=== PATIENT | male | born 1955 | race Two or more races ===

== ENCOUNTER 2017-01-04 16:37 | Inpatient (IN) | payer MEDICAID ==
[~2017-01-04] VITALS: Ht 167.6 cm; Wt 75.3 kg
[~2017-01-04 16:37] MED LIST: CARB200T PO; ESOM40CA39 PO; LORA-622 PO; METO25TA62 PO; NAPR-223 PO; OMEP20CA5
[2017-01-04 18:03] LABS: Albumin 3.2 g/dL (3.4-5.0); Anion Gap 8 (5-15); Aspartate Aminotransferase 13 U/L (15-37); BUN/Creatinine Ratio 20.8; Blood Urea Nitrogen 21 mg/dL (7-18); Calcium 8.2 mg/dL (8.5-10.1); Carbon Dioxide 26 mmol/L (21-32); Chloride 109 mmol/L (98-107); GFR African American 97 mL/min; GFR Non-African American 80 mL/min; Glucose 122 mg/dL (74-106); Potassium 4.5 mmol/L (3.5-5.1); Sodium 143 mmol/L (136-145)
[2017-01-04 18:04] LABS: Basophils # (auto) 0 uL; Basophils % (auto) 0.3 % (0.0-2.0); Eosinophils # (auto) 0.1 uL; Eosinophils % (auto) 1.4 % (0.0-7.0); Hemoglobin 14.1 g/dL (13.5-17.5); Lymphocytes # (auto) 1.2 uL; Mean Corpuscular Hemoglobin 30.3 pg (28.0-32.0); Mean Corpuscular Hgb Conc. 33.7 g/dL (32.0-36.0); Mean Corpuscular Volume 90.1 fL (80.0-100.0); Mean Platelet Volume 8.3 fL (7.4-10.4); Monocytes # (auto) 0.6 uL; Monocytes % (auto) 6.2 % (0.0-12.0); Neutrophils # (auto) 7.2 uL; Neutrophils % (auto) 79.1 % (37.0-80.0); Platelet Count (auto) 217 10^3/uL (140-450); Red Cell Distribution Width 13.2 % (11.6-16.0); SUSPECT VIEW TRANSMISSION; White Blood Cell 9.1 10^3/uL (4.4-10.8)
[2017-01-04 18:07] LABS: Alkaline Phosphatase 161 U/L (45-117); Bilirubin, Total 0.2 mg/dL (0.2-1.0)
[2017-01-04 18:23] LABS: B-Type Natriuretic Peptide 27.49 pg/mL (0-100)
[2017-01-04] MEDS ORDERED: MORPHINE SULF INJ 2 MG/ML SYRINGE 1ML IV ONE ×2 (18:30→21:00)
[2017-01-04] MEDS ORDERED: ONDANSETRON HCL 4 MG/2 ML VIAL IV ONE ×2 (18:30→21:00)
[2017-01-04 18:44] LABS: Temperature: 23.4 C (20.0-25.0)
[2017-01-04 18:48] LABS: INR 0.93 (0.9-1.15); Partial Thromboplastin Time 26.3 sec (22.64-33.71)
[2017-01-05] VITALS (7 sets, daily range): BP systolic 87–137; BP diastolic 51–87
[2017-01-05] MEDS ORDERED: ONDANSETRON HCL 4 MG/2 ML VIAL IV PRN (01:30)
[2017-01-05] MEDS ORDERED: SODIUM CHLORIDE 0.9% 500 ML IV ONE (01:30)
[2017-01-05] MEDS ORDERED: NITROGLYCERIN 0.4 MG SL TAB SL PRN (01:30)
[2017-01-05] MEDS ORDERED: MORPHINE SULF INJ 2 MG/ML SYRINGE 1ML IV PRN (01:30)
[2017-01-05] MEDS ORDERED: ACETAMINOPHEN 325 MG TAB PO PRN (01:30)
[2017-01-05] MEDS ORDERED: TEMAZEPAM 15 MG CAP PO PRN (01:30)
[2017-01-05] MEDS ORDERED: DEXTROSE (50%) 50ML SYRG IV PRN (01:30)
[2017-01-05] MEDS: HYDROcodone-ACET 5/325MG TAB PO PRN ×2 (04:28→20:54)
[2017-01-05] MEDS: InsuLIN REG 1unit/0.01ml Soln (100units/ml) SC SCH ×3 (06:00→18:00)
[2017-01-05] MEDS: ACCU-CHEK COMFORT CURVE STRIP VI SCH ×3 (06:00→18:00)
[2017-01-05] MEDS: METOPROLOL TARTRATE 25 MG TAB PO SCH ×2 (09:04→22:53)
[2017-01-05] MEDS: FAMOTIDINE 20 MG TAB PO SCH ×2 (09:04→22:52)
[2017-01-05] MEDS: carBAMazepine 200 MG TAB PO SCH ×2 (09:05→22:52)
[2017-01-05] MEDS: ENOXAPARIN SOD 40 MG/0.4 ML SYRINGE SC SCH (09:05)
[2017-01-05] MEDS: CLOPIDOGREL BISULFATE 75 MG TAB PO SCH (09:05)
[2017-01-05] MEDS ORDERED: ATORVASTATIN 20 MG TAB PO SCH (22:00)
[2017-01-06 05:00] VITALS: BP 118/75
[2017-01-06] MEDS: InsuLIN REG 1unit/0.01ml Soln (100units/ml) SC SCH ×3 (05:36→12:00)
[2017-01-06] MEDS: ACCU-CHEK COMFORT CURVE STRIP VI SCH ×3 (05:36→12:00)
[2017-01-06 06:36] LABS: Basophils # (auto) 0 uL; Basophils % (auto) 0.7 % (0.0-2.0); Eosinophils # (auto) 0.2 uL; Eosinophils % (auto) 3.2 % (0.0-7.0); Hematocrit 40.7 % (41.0-53.0); Hemoglobin 13.5 g/dL (13.5-17.5); Lymphocytes # (auto) 1.1 uL; Lymphocytes % (auto) 19.4 % (10.0-50.0); Mean Corpuscular Hemoglobin 30.4 pg (28.0-32.0); Mean Corpuscular Hgb Conc. 33.2 g/dL (32.0-36.0); Mean Corpuscular Volume 91.7 fL (80.0-100.0); Mean Platelet Volume 8.2 fL (7.4-10.4); Monocytes # (auto) 0.4 uL; Monocytes % (auto) 7.2 % (0.0-12.0); Neutrophils # (auto) 4.1 uL; Neutrophils % (auto) 69.5 % (37.0-80.0); Platelet Count (auto) 202 10^3/uL (140-450); Red Cell Distribution Width 13.9 % (11.6-16.0); White Blood Cell 5.9 10^3/uL (4.4-10.8)
[2017-01-06 07:24] LABS: BUN/Creatinine Ratio 21.7; Bilirubin, Total 0.3 mg/dL (0.2-1.0); Calcium 8.6 mg/dL (8.5-10.1); Potassium 4.2 mmol/L (3.5-5.1); Total Protein 6.8 g/dL (6.4-8.2)
[2017-01-06 08:38] VITALS: BP 126/74
[2017-01-06] MEDS: CLOPIDOGREL BISULFATE 75 MG TAB PO SCH (09:40)
[2017-01-06] MEDS: ENOXAPARIN SOD 40 MG/0.4 ML SYRINGE SC SCH (09:40)
[2017-01-06] MEDS: carBAMazepine 200 MG TAB PO SCH (09:40)
[2017-01-06] MEDS: FAMOTIDINE 20 MG TAB PO SCH (09:40)
[2017-01-06] MEDS: METOPROLOL TARTRATE 25 MG TAB PO SCH (09:41)
[2017-01-06 11:38] VITALS: BP 124/62
[2017-01-06 13:08] VITALS: BP 167/90
== END 2017-01-06 14:00 | disposition home or self-care (01) | DRG 243 ==
LOC: EDBD 16:37 → ER 16:43 → TELE 16:44 → TELE-WESTW 01-05 02:02
PROVIDERS: ADMIT Nurse Practitioner; ATTEND Family Medicine
DX: K21.9 Gastro-esophageal reflux disease without esophagitis (principal); I25.110 Atherosclerotic heart disease of native coronary artery with unstable angina pectoris; E11.65 Type 2 diabetes mellitus with hyperglycemia; E44.1 Mild protein-calorie malnutrition; J44.9 Chronic obstructive pulmonary disease, unspecified; I10 Essential (primary) hypertension; M94.0 Chondrocostal junction syndrome [Tietze]; F17.210 Nicotine dependence, cigarettes, uncomplicated; E78.5 Hyperlipidemia, unspecified; E86.0 Dehydration; Z86.73 Personal history of transient ischemic attack (TIA), and cerebral infarction without residual deficits; I25.2 Old myocardial infarction; Z95.5 Presence of coronary angioplasty implant and graft; Z88.6 Allergy status to analgesic agent; Z91.11 Patient's noncompliance with dietary regimen; Z68.26 Body mass index [BMI] 26.0-26.9, adult
CPT/HCPCS: 36415; 71010; 80053; 82962; 83880; 84443; 84484; 85025; 85379; 85610; 85730; 93005; 94761; 96374; 96375; 96376; J2405

== ENCOUNTER 2017-02-28 15:06 | Emergency (ER) | payer MEDICAID ==
[~2017-02-28] VITALS: Ht 167.6 cm; Wt 70.8 kg
[2017-02-28] MEDS ORDERED: SODIUM CHLORIDE 0.9% 1,000 ML IV ONE (15:50)
[2017-02-28] MEDS ORDERED: MORPHINE SULFATE 4 MG/ML SYRG IV ONE (16:00)
[2017-02-28] MEDS ORDERED: ONDANSETRON HCL 4 MG/2 ML VIAL IV ONE (16:00)
[2017-02-28 16:51] LABS: Basophils # (auto) 0 uL; Basophils % (auto) 0.6 % (0.0-2.0); Eosinophils # (auto) 0.2 uL; Eosinophils % (auto) 3.1 % (0.0-7.0); Hemoglobin 13.2 g/dL (13.5-17.5); Lymphocytes # (auto) 1.2 uL; Mean Corpuscular Hemoglobin 30.5 pg (28.0-32.0); Mean Corpuscular Volume 92.6 fL (80.0-100.0); Mean Platelet Volume 8.2 fL (7.4-10.4); Monocytes # (auto) 0.4 uL; Monocytes % (auto) 6.5 % (0.0-12.0); Neutrophils % (auto) 69.8 % (37.0-80.0); Platelet Count (auto) 203 10^3/uL (140-450); Red Cell Distribution Width 14.8 % (11.6-16.0); White Blood Cell 5.8 10^3/uL (4.4-10.8)
[2017-02-28 17:04] LABS: INR 0.96 (0.9-1.15); Partial Thromboplastin Time 25.8 sec (22.64-33.71); Prothrombin Time 10.5 sec (9.37-12.3)
[2017-02-28 17:26] LABS: Albumin 2.9 g/dL (3.4-5.0); Alkaline Phosphatase 134 U/L (45-117); Anion Gap 6 (5-15); Aspartate Aminotransferase 11 U/L (15-37); BUN/Creatinine Ratio 18.6; Bilirubin, Total 0.2 mg/dL (0.2-1.0); Blood Urea Nitrogen 16 mg/dL (7-18); Carbon Dioxide 28 mmol/L (21-32); Chloride 106 mmol/L (98-107); GFR African American 116 mL/min; GFR Non-African American 96 mL/min; Glucose 112 mg/dL (74-106); Magnesium 2.1 mg/dL (1.6-2.6); Sodium 140 mmol/L (136-145); Total Protein 6.6 g/dL (6.4-8.2)
[2017-02-28 17:29] LABS: B-Type Natriuretic Peptide 80.44 pg/mL (0-100)
[2017-02-28 17:31] LABS: Temperature: 24.1 C (20.0-25.0)
[2017-02-28 18:25] VITALS: BP 127/67
== END 2017-02-28 18:59 | disposition home or self-care (01) ==
LOC: EDBD 15:06 → ER 15:15
DX: R07.89 Other chest pain (principal); R51 Headache; R42 Dizziness and giddiness; I10 Essential (primary) hypertension; I25.10 Atherosclerotic heart disease of native coronary artery without angina pectoris; F17.210 Nicotine dependence, cigarettes, uncomplicated; J44.9 Chronic obstructive pulmonary disease, unspecified; E11.9 Type 2 diabetes mellitus without complications; K21.9 Gastro-esophageal reflux disease without esophagitis; E78.5 Hyperlipidemia, unspecified; I25.2 Old myocardial infarction; Z98.61 Coronary angioplasty status; Z88.8 Allergy status to other drugs, medicaments and biological substances; Z79.899 Other long term (current) drug therapy; Z86.73 Personal history of transient ischemic attack (TIA), and cerebral infarction without residual deficits; Z95.5 Presence of coronary angioplasty implant and graft
CPT/HCPCS: 36415; 70450; 71010; 80053; 80156; 83735; 83880; 84484; 85025; 85610; 85730; 93005; 94761; 96374; 96375; 99285; J2270; J2405; J7030; 96361

== ENCOUNTER 2017-10-02 10:10 | Observation (INO) | payer MEDICAID ==
[~2017-10-02] VITALS: Ht 167.6 cm; Wt 81.6 kg
[~2017-10-02 10:10] MED LIST changes: -OMEP20CA5; +OMEP20CA74
[2017-10-02] MEDS ORDERED: IPRATROPIUM BROM 0.5 MG/2.5ML INH SOL NEB ONE (16:30)
[2017-10-02] MEDS ORDERED: ALBUTEROL SULF 2.5 MG/0.5ML(0.5%) NEB SOLN NEB ONE (16:30)
[2017-10-02 17:11] VITALS: BP 138/99
[2017-10-02] MEDS ORDERED: methylPREDNISolone SOD SUCC 125 MG/2 ML VL IV ONE (17:15)
[2017-10-02 18:06] LABS: Basophils # (auto) 0 uL; Basophils % (auto) 0.5 % (0.0-2.0); Eosinophils # (auto) 0.1 uL; Hematocrit 44.1 % (41.0-53.0); Hemoglobin 15.2 g/dL (13.5-17.5); Lymphocytes # (auto) 1.1 uL; Lymphocytes % (auto) 19.6 % (10.0-50.0); Mean Corpuscular Hemoglobin 31.8 pg (28.0-32.0); Mean Corpuscular Hgb Conc. 34.5 g/dL (32.0-36.0); Mean Corpuscular Volume 92.3 fL (80.0-100.0); Monocytes # (auto) 0.6 uL; Neutrophils # (auto) 3.6 uL; Neutrophils % (auto) 66.9 % (37.0-80.0); Nucleated Red Blood Cells % 0.1 %; Platelet Count (auto) 182 10^3/uL (140-450); Red Blood Cells 4.78 10^6/uL (4.5-5.90); Red Cell Distribution Width 13.5 % (11.8-14.3); White Blood Cell 5.4 10^3/uL (4.4-10.8)
[2017-10-02 18:26] LABS: Albumin 3.3 g/dL (3.4-5.0); BUN/Creatinine Ratio 13.5; Bilirubin, Total 0.3 mg/dL (0.2-1.0); Calcium 8.4 mg/dL (8.5-10.1); Potassium 3.9 mmol/L (3.5-5.1)
== END 2017-10-02 18:56 | disposition home or self-care (01) | DRG 140 ==
LOC: EDBD 10:10 → ER 10:12 → OVERFLOW 17:08 → ER 18:56
PROVIDERS: ADMIT Family Medicine; ATTEND Family Medicine
DX: J44.9 Chronic obstructive pulmonary disease, unspecified (principal); I10 Essential (primary) hypertension; I25.10 Atherosclerotic heart disease of native coronary artery without angina pectoris; K21.9 Gastro-esophageal reflux disease without esophagitis; E78.5 Hyperlipidemia, unspecified; I25.2 Old myocardial infarction; F17.210 Nicotine dependence, cigarettes, uncomplicated; Z95.5 Presence of coronary angioplasty implant and graft
CPT/HCPCS: 36415; 80053; 85025; 93005; 94640; 96374; 99285; G0378; J2930

== ENCOUNTER 2017-10-14 17:00 | Inpatient (IN) | payer MEDICAID ==
[~2017-10-14] VITALS: Ht 167.6 cm; Wt 76.0 kg
[2017-10-14] MEDS ORDERED: methylPREDNISolone SOD SUCC 125 MG/2 ML VL IV ONE (17:30)
[2017-10-14 18:05] LABS: Basophils # (auto) 0 uL; Basophils % (auto) 0.2 % (0.0-2.0); Eosinophils # (auto) 0 uL; Hematocrit 44.5 % (41.0-53.0); Hemoglobin 15.1 g/dL (13.5-17.5); Lymphocytes % (auto) 12.7 % (10.0-50.0); Mean Corpuscular Hemoglobin 31.7 pg (28.0-32.0); Mean Corpuscular Volume 93.2 fL (80.0-100.0); Monocytes # (auto) 0.2 uL; Monocytes % (auto) 2.1 % (0.0-12.0); Neutrophils # (auto) 6.8 uL; Platelet Count (auto) 286 10^3/uL (140-450); Red Blood Cells 4.77 10^6/uL (4.5-5.90); Red Cell Distribution Width 14.1 % (11.8-14.3)
[2017-10-14] MEDS ORDERED: ALBUTEROL SULF 2.5 MG/0.5ML(0.5%) NEB SOLN HHN ONE (18:15)
[2017-10-14] MEDS ORDERED: IPRATROPIUM BROM 0.5 MG/2.5ML INH SOL HHN ONE (18:15)
[2017-10-14 18:24] LABS: Anion Gap 9 (5-15); Blood Urea Nitrogen 38 mg/dL (7-18); Calcium 8.2 mg/dL (8.5-10.1); Carbon Dioxide 23 mmol/L (21-32); Chloride 106 mmol/L (98-107); Glucose 153 mg/dL (74-106); Sodium 138 mmol/L (136-145)
[2017-10-14 18:26] LABS: Aspartate Aminotransferase 24 U/L (15-37); BUN/Creatinine Ratio 26.8; GFR African American 65 mL/min; GFR Non-African American 54 mL/min
[2017-10-14 18:30] LABS: INR 1.03 (0.9-1.15); Partial Thromboplastin Time 25.8 sec (22.64-33.71); Prothrombin Time 11.2 sec (9.37-12.3)
[2017-10-14 18:34] LABS: Alanine Aminotransferase 35 U/L (16-61); Alkaline Phosphatase 155 U/L (45-117); Bilirubin, Total 0.3 mg/dL (0.2-1.0)
[2017-10-14] MEDS ORDERED: cefTRIAXone 1GM/10ml IVPUSH 10 ML IV ONE (21:30)
[2017-10-14] MEDS ORDERED: ONDANSETRON HCL 4 MG/2 ML VIAL IV PRN (22:45)
[2017-10-14] MEDS ORDERED: ACETAMINOPHEN 500 MG TAB PO PRN (22:45)
[2017-10-14] MEDS: DOXYCYCLINE HYC 100MG/250ML 250 ML IV SCH (22:52)
[2017-10-15] VITALS (8 sets, daily range): BP systolic 97–152; BP diastolic 67–96
[2017-10-15] MEDS: ALBUTEROL SULF 2.5 MG/0.5ML(0.5%) NEB SOLN NEB SCH ×5 (00:44→19:49)
[2017-10-15] MEDS: IPRATROPIUM BROM 0.5 MG/2.5ML INH SOL NEB SCH ×5 (00:44→19:49)
[2017-10-15 05:25] LABS: Basophils # (auto) 0 uL; Basophils % (auto) 0.1 % (0.0-2.0); Eosinophils # (auto) 0 uL; Hematocrit 42.5 % (41.0-53.0); Hemoglobin 14.4 g/dL (13.5-17.5); Lymphocytes # (auto) 1.6 uL; Mean Corpuscular Hemoglobin 31.2 pg (28.0-32.0); Mean Corpuscular Hgb Conc. 33.8 g/dL (32.0-36.0); Mean Corpuscular Volume 92.2 fL (80.0-100.0); Monocytes # (auto) 0.6 uL; Monocytes % (auto) 5.2 % (0.0-12.0); Neutrophils # (auto) 9.8 uL; Neutrophils % (auto) 81.7 % (37.0-80.0); Nucleated Red Blood Cells % 0.1 %; Platelet Count (auto) 252 10^3/uL (140-450); Red Blood Cells 4.61 10^6/uL (4.5-5.90); Red Cell Distribution Width 13.8 % (11.8-14.3)
[2017-10-15] MEDS: SODIUM CHLORIDE 0.9% 1,000 ML IV SCH ×2 (05:32→15:27)
[2017-10-15] MEDS: methylPREDNISolone SOD SUCC 40 MG/ML VL IV SCH ×3 (05:33→22:10)
[2017-10-15 05:47] LABS: Calcium 8.3 mg/dL (8.5-10.1); Potassium 4.3 mmol/L (3.5-5.1)
[2017-10-15] MEDS: HYDROcodone-ACET 5/325MG TAB PO PRN ×3 (08:50→22:11)
[2017-10-15] MEDS ORDERED: FUROSEMIDE 40 MG TAB PO SCH (10:00)
[2017-10-15] MEDS: ENALAPRIL MALEATE 10 MG TAB PO SCH (10:04)
[2017-10-15] MEDS: DOXYCYCLINE HYC 100MG/250ML 250 ML IV SCH ×2 (10:05→22:21)
[2017-10-15] MEDS: CARVEDILOL 12.5 MG TAB PO SCH ×2 (10:05→22:11)
[2017-10-15] MEDS: PENICILLIN V POTASSIUM 250 MG TAB PO SCH (22:11)
[2017-10-15] MEDS ORDERED: carBAMazepine 200 MG TAB PO ONE (22:30)
[2017-10-16] MEDS: SODIUM CHLORIDE 0.9% 1,000 ML IV SCH ×2 (03:10→15:57)
[2017-10-16] MEDS: methylPREDNISolone SOD SUCC 40 MG/ML VL IV SCH (05:51)
[2017-10-16] MEDS: PENICILLIN V POTASSIUM 250 MG TAB PO SCH ×2 (05:52→15:56)
[2017-10-16 05:55] VITALS: BP 91/57
[2017-10-16] MEDS: IPRATROPIUM BROM 0.5 MG/2.5ML INH SOL NEB SCH ×4 (06:00→19:27)
[2017-10-16] MEDS: ALBUTEROL SULF 2.5 MG/0.5ML(0.5%) NEB SOLN NEB SCH ×4 (06:00→19:27)
[2017-10-16 08:00] VITALS: BP 131/90
[2017-10-16 09:00] VITALS: BP 131/90
[2017-10-16] MEDS: PANTOPRAZOLE 40 MG TAB PO SCH (11:34)
[2017-10-16] MEDS: HYDROcodone-ACET 5/325MG TAB PO PRN ×3 (11:34→21:35)
[2017-10-16] MEDS: ENALAPRIL MALEATE 10 MG TAB PO SCH (11:35)
[2017-10-16] MEDS: carBAMazepine 200 MG TAB PO SCH ×2 (11:35→21:35)
[2017-10-16] MEDS: CARVEDILOL 12.5 MG TAB PO SCH ×2 (11:36→21:35)
[2017-10-16] MEDS: DOXYCYCLINE HYC 100MG/250ML 250 ML IV SCH (11:36)
[2017-10-16 13:00] VITALS: BP 117/68
[2017-10-16 22:00] VITALS: BP 116/66
[2017-10-17 05:00] VITALS: BP 94/50
[2017-10-17] MEDS: SODIUM CHLORIDE 0.9% 1,000 ML IV SCH (05:49)
[2017-10-17] MEDS: IPRATROPIUM BROM 0.5 MG/2.5ML INH SOL NEB SCH ×2 (06:00→12:13)
[2017-10-17] MEDS: ALBUTEROL SULF 2.5 MG/0.5ML(0.5%) NEB SOLN NEB SCH ×2 (06:00→12:13)
[2017-10-17 09:00] VITALS: BP 146/89
[2017-10-17 09:48] LABS: Basophils # (auto) 0.1 uL; Basophils % (auto) 0.6 % (0.0-2.0); Eosinophils # (auto) 0.1 uL; Hematocrit 44.9 % (41.0-53.0); Lymphocytes # (auto) 2.6 uL; Lymphocytes % (auto) 29.1 % (10.0-50.0); Mean Corpuscular Hemoglobin 31.2 pg (28.0-32.0); Mean Corpuscular Hgb Conc. 33.3 g/dL (32.0-36.0); Mean Corpuscular Volume 93.6 fL (80.0-100.0); Monocytes # (auto) 0.7 uL; Neutrophils # (auto) 5.4 uL; Neutrophils % (auto) 61.3 % (37.0-80.0); Nucleated Red Blood Cells % 0.1 %; Platelet Count (auto) 246 10^3/uL (140-450); Red Cell Distribution Width 14.1 % (11.8-14.3); White Blood Cell 8.9 10^3/uL (4.4-10.8)
[2017-10-17] MEDS ORDERED: predniSONE 20 MG TAB PO SCH (10:00)
[2017-10-17 10:08] LABS: Albumin 2.8 g/dL (3.4-5.0); BUN/Creatinine Ratio 29.7; Calcium 8.4 mg/dL (8.5-10.1); Potassium 4.6 mmol/L (3.5-5.1)
[2017-10-17 10:10] LABS: Bilirubin, Total 0.4 mg/dL (0.2-1.0); Total Protein 6.5 g/dL (6.4-8.2)
[2017-10-17] MEDS: CARVEDILOL 12.5 MG TAB PO SCH (10:20)
[2017-10-17] MEDS: ENALAPRIL MALEATE 10 MG TAB PO SCH (10:20)
[2017-10-17] MEDS: PANTOPRAZOLE 40 MG TAB PO SCH (10:20)
[2017-10-17] MEDS: HYDROcodone-ACET 5/325MG TAB PO PRN (10:21)
[2017-10-17] MEDS: carBAMazepine 200 MG TAB PO SCH (10:21)
[2017-10-17 17:00] VITALS: BP 156/94
[2017-10-17 17:23] VITALS: BP 156/94
== END 2017-10-17 18:45 | disposition home or self-care (01) | DRG 139 ==
LOC: EDBD 17:00 → EDUNIT# 17:00 → ER 17:00 → OVERFLOW 17:01 → WEST WING 10-15 01:36
PROVIDERS: ADMIT Nurse Practitioner Family; ATTEND Internal Medicine Pulmonary Disease
DX: J18.9 Pneumonia, unspecified organism (principal); N17.9 Acute kidney failure, unspecified; J44.0 Chronic obstructive pulmonary disease with (acute) lower respiratory infection; E44.1 Mild protein-calorie malnutrition; N18.3 Chronic kidney disease, stage 3 (moderate); J44.1 Chronic obstructive pulmonary disease with (acute) exacerbation; I25.10 Atherosclerotic heart disease of native coronary artery without angina pectoris; E78.5 Hyperlipidemia, unspecified; K21.9 Gastro-esophageal reflux disease without esophagitis; E87.1 Hypo-osmolality and hyponatremia; F17.210 Nicotine dependence, cigarettes, uncomplicated; I12.9 Hypertensive chronic kidney disease with stage 1 through stage 4 chronic kidney disease, or unspecified chronic kidney disease; J20.9 Acute bronchitis, unspecified; Z79.899 Other long term (current) drug therapy; Z90.89 Acquired absence of other organs; I25.2 Old myocardial infarction; Z68.27 Body mass index [BMI] 27.0-27.9, adult; Z71.6 Tobacco abuse counseling
CPT/HCPCS: 36415; 71045; 80048; 80053; 83605; 83735; 83880; 84484; 85025; 85610; 85730; 87040; 87070; 87880; 93005; 94640; 94761; 96374; 96375; J3490

== ENCOUNTER 2017-11-15 13:29 | Inpatient (IN) | payer MEDICARE, MEDICAID ==
[~2017-11-15] VITALS: Ht 168.9 cm; Wt 80.4 kg
[2017-11-15] MEDS ORDERED: SODIUM CHLORIDE 0.9% 1,000 ML IV ONE (13:40)
[2017-11-15] MEDS ORDERED: PIPERACILLIN-TAZOB 3.375GM 50 ML IV ONE (13:45)
[2017-11-15 14:17] LABS: Basophils # (auto) 0 uL; Basophils % (auto) 0.4 % (0.0-2.0); Eosinophils # (auto) 0 uL; Lymphocytes # (auto) 0.5 uL; Lymphocytes % (auto) 5.7 % (10.0-50.0); Mean Corpuscular Hemoglobin 31.4 pg (28.0-32.0); Mean Corpuscular Hgb Conc. 33.3 g/dL (32.0-36.0); Mean Corpuscular Volume 94.5 fL (80.0-100.0); Monocytes # (auto) 0.3 uL; Monocytes % (auto) 3.4 % (0.0-12.0); Neutrophils # (auto) 7.6 uL; Neutrophils % (auto) 90.5 % (37.0-80.0); Nucleated Red Blood Cells % 0.1 %; Platelet Count (auto) 195 10^3/uL (140-450); Red Blood Cells 4.45 10^6/uL (4.5-5.90); Red Cell Distribution Width 15.5 % (11.8-14.3); White Blood Cell 8.4 10^3/uL (4.4-10.8)
[2017-11-15 14:30] LABS: INR 0.95 (0.9-1.15); Partial Thromboplastin Time 24.1 sec (22.64-33.71); Prothrombin Time 10.3 sec (9.37-12.3)
[2017-11-15 14:37] LABS: Alanine Aminotransferase 27 U/L (16-61); Albumin 3.3 g/dL (3.4-5.0); Alkaline Phosphatase 107 U/L (45-117); Anion Gap 9 (5-15); Aspartate Aminotransferase 21 U/L (15-37); BUN/Creatinine Ratio 22.2; Bilirubin, Total 0.3 mg/dL (0.2-1.0); Blood Urea Nitrogen 20 mg/dL (7-18); Calcium 8.4 mg/dL (8.5-10.1); Carbon Dioxide 25 mmol/L (21-32); Chloride 108 mmol/L (98-107); GFR African American 110 mL/min; GFR Non-African American 91 mL/min; Glucose 107 mg/dL (74-106); Potassium 3.7 mmol/L (3.5-5.1); Sodium 142 mmol/L (136-145); Total Protein 6.8 g/dL (6.4-8.2)
[2017-11-15] MEDS ORDERED: NITR0.4S29 SL (17:55)
[2017-11-15] MEDS ORDERED: ZONI100C43 PO (17:55)
[2017-11-15] MEDS ORDERED: LORA-154 PO (17:55)
[2017-11-15] MEDS ORDERED: FOLI1TAB6 PO (17:55)
[2017-11-15] MEDS ORDERED: OMEP20CA74 PO (17:55)
[2017-11-15] MEDS ORDERED: ASPI81TA27 PO (17:55)
[2017-11-15] MEDS ORDERED: ATOR40TA52 PO (17:55)
[2017-11-15] MEDS ORDERED: PRED1PAK10 PO (17:55)
[2017-11-15] MEDS ORDERED: ACET-863 PO (17:55)
[2017-11-15] MEDS ORDERED: FURO40TA4 PO (17:56)
[2017-11-15] MEDS ORDERED: CLOP75TA41 PO (17:56)
[2017-11-15] MEDS: IPRATROPIUM BROM 0.5 MG/2.5ML INH SOL NEB SCH ×2 (18:00→23:58)
[2017-11-15] MEDS: ALBUTEROL SULF 2.5 MG/0.5ML(0.5%) NEB SOLN NEB SCH ×2 (18:00→23:58)
[2017-11-15] MEDS ORDERED: cefTRIAXone 1GM/10ml IVPUSH 10 ML IV ONE (18:00)
[2017-11-15] MEDS ORDERED: LORazepam 2MG/ML-1ML VIAL IV PRN (18:00)
[2017-11-15] MEDS ORDERED: ACETAMINOPHEN 325 MG TAB PO PRN (18:15)
[2017-11-15] MEDS ORDERED: MORPHINE SULFATE 4 MG/ML SYR/VIAL IV PRN ×2 (18:15)
[2017-11-15] MEDS ORDERED: NITROGLYCERIN 0.4 MG SL TAB SL PRN (18:15)
[2017-11-15] MEDS ORDERED: TEMAZEPAM 15 MG CAP PO PRN (18:15)
[2017-11-15] MEDS ORDERED: ONDANSETRON HCL 4 MG/2 ML VIAL IV PRN (18:15)
[2017-11-15] MEDS ORDERED: DOCUSATE SOD 100 MG CAP PO PRN (18:15)
[2017-11-15] MEDS: PANTOPRAZOLE 40 MG TAB PO SCH (18:42)
[2017-11-15] MEDS: methylPREDNISolone SOD SUCC 40 MG/ML VL IV SCH ×2 (18:43→23:03)
[2017-11-15] MEDS: BOOST PLUS 8 ounce PO SCH (18:58)
[2017-11-15 19:52] VITALS: BP 117/93
[2017-11-15 20:01] LABS: Lactic Acid w/Reflex 2.1 mmol/L (0.4-2.0)
[2017-11-15] MEDS: HYDROcodone-ACET 5/325MG TAB PO PRN (21:10)
[2017-11-15] MEDS: carBAMazepine 200 MG TAB PO SCH (22:00)
[2017-11-15] MEDS ORDERED: FAMOTIDINE 20 MG TAB PO SCH (22:00)
[2017-11-15] MEDS: SODIUM CHLOR 0.9% PF (SALINE LOCK) 10ML VIAL IV SCH (22:12)
[2017-11-15] MEDS: ATORVASTATIN 20 MG TAB PO SCH (22:30)
[2017-11-15 22:39] VITALS: BP 121/76
[2017-11-16 05:41] VITALS: BP 101/55
[2017-11-16] MEDS: methylPREDNISolone SOD SUCC 40 MG/ML VL IV SCH ×4 (06:00→23:32)
[2017-11-16] MEDS: SODIUM CHLOR 0.9% PF (SALINE LOCK) 10ML VIAL IV SCH ×3 (06:00→22:00)
[2017-11-16] MEDS: IPRATROPIUM BROM 0.5 MG/2.5ML INH SOL NEB SCH ×4 (07:06→23:04)
[2017-11-16] MEDS: ALBUTEROL SULF 2.5 MG/0.5ML(0.5%) NEB SOLN NEB SCH ×4 (07:06→23:03)
[2017-11-16 07:08] LABS: Basophils # (auto) 0 uL; Basophils % (auto) 0.2 % (0.0-2.0); Eosinophils # (auto) 0 uL; Hemoglobin 12.8 g/dL (13.5-17.5); Lymphocytes # (auto) 0.8 uL; Lymphocytes % (auto) 10.1 % (10.0-50.0); Mean Corpuscular Hemoglobin 32.5 pg (28.0-32.0); Mean Corpuscular Hgb Conc. 34.6 g/dL (32.0-36.0); Mean Corpuscular Volume 93.9 fL (80.0-100.0); Monocytes # (auto) 0.4 uL; Monocytes % (auto) 5.1 % (0.0-12.0); Neutrophils # (auto) 6.7 uL; Neutrophils % (auto) 84.6 % (37.0-80.0); Nucleated Red Blood Cells % 0.1 %; Platelet Count (auto) 187 10^3/uL (140-450); Red Blood Cells 3.94 10^6/uL (4.5-5.90); Red Cell Distribution Width 15.5 % (11.8-14.3); White Blood Cell 7.9 10^3/uL (4.4-10.8)
[2017-11-16 07:20] LABS: Albumin 2.7 g/dL (3.4-5.0); BUN/Creatinine Ratio 27.3; Bilirubin, Total 0.3 mg/dL (0.2-1.0); Calcium 8.3 mg/dL (8.5-10.1); Potassium 4.4 mmol/L (3.5-5.1); Total Protein 5.9 g/dL (6.4-8.2)
[2017-11-16] MEDS ORDERED: INFLUENZA QUAD 2017-2018 0.5 ML SYRG IM ONE ×2 (07:45→12:00)
[2017-11-16] MEDS ORDERED: PNEUMOCOCCAL VACC POLYS 25 MCG/0.5 ML VIAL IM ONE (08:00)
[2017-11-16 09:00] VITALS: BP 107/70
[2017-11-16] MEDS ORDERED: cefTRIAXone 1GM/10ml IVPUSH 10 ML IV SCH (09:00)
[2017-11-16] MEDS: carBAMazepine 200 MG TAB PO SCH ×2 (11:03→23:03)
[2017-11-16] MEDS: PANTOPRAZOLE 40 MG TAB PO SCH (11:03)
[2017-11-16] MEDS: LORATADINE 10 MG TAB PO SCH (11:04)
[2017-11-16] MEDS: CLOPIDOGREL BISULFATE 75 MG TAB PO SCH (11:04)
[2017-11-16] MEDS: MULTIPLE VITAMIN TAB PO SCH (11:05)
[2017-11-16] MEDS: ASPirin-EC 81 mg tab PO SCH (11:05)
[2017-11-16] MEDS: FUROSEMIDE 40 MG TAB PO SCH (11:05)
[2017-11-16] MEDS: BOOST PLUS 8 ounce PO SCH ×3 (11:06→18:32)
[2017-11-16] MEDS: FOLIC ACID 1 MG TAB PO SCH (11:06)
[2017-11-16 12:48] LABS: Urine WBC None Seen /hpf (0 - 3)
[2017-11-16 13:00] VITALS: BP 141/89
[2017-11-16 13:22] LABS: Urine Bacteria NONE SEEN /hpf (None Seen); Urine Blood Negative /uL (Negative); Urine Specific Gravity 1.004 (1.001-1.035)
[2017-11-16 17:00] VITALS: BP 132/73
[2017-11-16] MEDS: BUDESONIDE (INHALATION) 0.5 MG/2 ML NEB NEB SCH (19:57)
[2017-11-16 22:00] VITALS: BP 136/74
[2017-11-16] MEDS: ATORVASTATIN 20 MG TAB PO SCH (23:04)
[2017-11-16] MEDS: HYDROcodone-ACET 5/325MG TAB PO PRN (23:04)
[2017-11-16] MEDS: DOXYCYCLINE 100 MG TAB/CAP PO SCH (23:04)
[2017-11-17] MEDS: SODIUM CHLOR 0.9% PF (SALINE LOCK) 10ML VIAL IV SCH ×2 (06:00→13:33)
[2017-11-17] MEDS: ALBUTEROL SULF 2.5 MG/0.5ML(0.5%) NEB SOLN NEB SCH ×2 (06:30→11:54)
[2017-11-17] MEDS: IPRATROPIUM BROM 0.5 MG/2.5ML INH SOL NEB SCH ×2 (06:30→11:54)
[2017-11-17] MEDS: methylPREDNISolone SOD SUCC 40 MG/ML VL IV SCH ×2 (07:08→11:25)
[2017-11-17] MEDS: BOOST PLUS 8 ounce PO SCH ×2 (08:10→12:14)
[2017-11-17] MEDS: HYDROcodone-ACET 5/325MG TAB PO PRN ×3 (08:10→12:14)
[2017-11-17 08:52] VITALS: BP 102/63
[2017-11-17] MEDS: DOXYCYCLINE 100 MG TAB/CAP PO SCH (09:45)
[2017-11-17] MEDS: ASPirin-EC 81 mg tab PO SCH (09:45)
[2017-11-17] MEDS: CLOPIDOGREL BISULFATE 75 MG TAB PO SCH (09:46)
[2017-11-17] MEDS: MULTIPLE VITAMIN TAB PO SCH (09:46)
[2017-11-17] MEDS: PANTOPRAZOLE 40 MG TAB PO SCH (09:46)
[2017-11-17] MEDS: carBAMazepine 200 MG TAB PO SCH (09:47)
[2017-11-17] MEDS: FOLIC ACID 1 MG TAB PO SCH (09:47)
[2017-11-17] MEDS: LORATADINE 10 MG TAB PO SCH (09:47)
[2017-11-17] MEDS: FUROSEMIDE 40 MG TAB PO SCH (09:49)
[2017-11-17] MEDS ORDERED: FLUT110A INH (11:04)
[2017-11-17] MEDS ORDERED: DOX100T PO (11:04)
[2017-11-17 11:52] VITALS: BP 102/73
[2017-11-17] MEDS: BUDESONIDE (INHALATION) 0.5 MG/2 ML NEB NEB SCH (11:55)
== END 2017-11-17 13:45 | disposition home or self-care (01) | DRG 191 ==
LOC: EDUNIT# 13:29 → EDBD 13:29 → ER 13:29 → TELE 13:30 → TELE-WESTW 21:24
PROVIDERS: ADMIT Internal Medicine; ATTEND Internal Medicine
DX: J44.0 Chronic obstructive pulmonary disease with (acute) lower respiratory infection (principal); J45.901 Unspecified asthma with (acute) exacerbation; I24.9 Acute ischemic heart disease, unspecified; E44.0 Moderate protein-calorie malnutrition; K21.9 Gastro-esophageal reflux disease without esophagitis; J98.11 Atelectasis; J44.1 Chronic obstructive pulmonary disease with (acute) exacerbation; F17.210 Nicotine dependence, cigarettes, uncomplicated; I25.10 Atherosclerotic heart disease of native coronary artery without angina pectoris; J20.9 Acute bronchitis, unspecified; I10 Essential (primary) hypertension; E78.5 Hyperlipidemia, unspecified; G40.909 Epilepsy, unspecified, not intractable, without status epilepticus; K44.9 Diaphragmatic hernia without obstruction or gangrene; Z68.28 Body mass index [BMI] 28.0-28.9, adult; I25.2 Old myocardial infarction; Z86.73 Personal history of transient ischemic attack (TIA), and cerebral infarction without residual deficits; Z95.5 Presence of coronary angioplasty implant and graft; Z90.89 Acquired absence of other organs; Z23 Encounter for immunization
CPT/HCPCS: 36415; 71045; 71250; 80053; 81001; 83605; 83880; 84484; 85025; 85610; 85730; 87040; 87081; 93005; 94640; 96374; 96375; J2405; J2543

== ENCOUNTER 2017-12-09 16:44 | Emergency (ER) | payer MEDICARE, MEDICAID ==
[~2017-12-09 16:44] MED LIST changes: +ACET-863 PO; +ASPI81TA27 PO; +ATOR40TA52 PO; +CLOP75TA41 PO; +DOX100T PO; +FLUT110A INH; +FOLI1TAB6 PO; +FURO40TA4 PO; -NAPR-223 PO; +NITR0.4S29 SL; +ZONI100C43 PO
[2017-12-09 17:35] LABS: Basophils # (auto) 0.1 uL; Basophils % (auto) 0.8 % (0.0-2.0); Eosinophils # (auto) 0.2 uL; Eosinophils % (auto) 2.3 % (0.0-7.0); Hematocrit 44.8 % (41.0-53.0); Lymphocytes # (auto) 1.4 uL; Lymphocytes % (auto) 17.3 % (10.0-50.0); Mean Corpuscular Hemoglobin 31.9 pg (28.0-32.0); Mean Corpuscular Hgb Conc. 33.5 g/dL (32.0-36.0); Mean Corpuscular Volume 95.1 fL (80.0-100.0); Monocytes # (auto) 0.8 uL; Monocytes % (auto) 9.1 % (0.0-12.0); Neutrophils # (auto) 5.8 uL; Neutrophils % (auto) 70.5 % (37.0-80.0); Nucleated Red Blood Cells % 0.1 %; Platelet Count (auto) 287 10^3/uL (140-450); Red Blood Cells 4.71 10^6/uL (4.5-5.90); Red Cell Distribution Width 15.3 % (11.8-14.3); White Blood Cell 8.3 10^3/uL (4.4-10.8)
[2017-12-09 17:49] LABS: Alanine Aminotransferase 30 U/L (16-61); Albumin 3.4 g/dL (3.4-5.0); Anion Gap 7 (5-15); Aspartate Aminotransferase 25 U/L (15-37); BUN/Creatinine Ratio 17.8; Blood Urea Nitrogen 23 mg/dL (7-18); Calcium 8.6 mg/dL (8.5-10.1); Carbon Dioxide 30 mmol/L (21-32); Chloride 104 mmol/L (98-107); GFR African American 73 mL/min; GFR Non-African American 60 mL/min; Glucose 85 mg/dL (74-106); Magnesium 1.8 mg/dL (1.6-2.6); Potassium 3.8 mmol/L (3.5-5.1); Sodium 141 mmol/L (136-145)
[2017-12-09 17:54] LABS: Alkaline Phosphatase 170 U/L (45-117); Bilirubin, Total 0.2 mg/dL (0.2-1.0); Total Protein 7.8 g/dL (6.4-8.2)
[2017-12-09 23:00] VITALS: BP 132/82
== END 2017-12-10 05:42 | disposition home or self-care (01) ==
LOC: EDBD 16:44 → ER 16:44
DX: R07.89 Other chest pain (principal); R51 Headache; I25.10 Atherosclerotic heart disease of native coronary artery without angina pectoris; J44.9 Chronic obstructive pulmonary disease, unspecified; K21.9 Gastro-esophageal reflux disease without esophagitis; E78.5 Hyperlipidemia, unspecified; I10 Essential (primary) hypertension; I25.2 Old myocardial infarction; F17.210 Nicotine dependence, cigarettes, uncomplicated; Z79.82 Long term (current) use of aspirin; Z86.73 Personal history of transient ischemic attack (TIA), and cerebral infarction without residual deficits
CPT/HCPCS: 36415; 71046; 80053; 83735; 84484; 85025; 93005

== ENCOUNTER 2017-12-10 06:44 | Emergency (ER) | payer MEDICARE, MEDICAID ==
[~2017-12-10] VITALS: Ht 167.6 cm; Wt 74.8 kg
[2017-12-10 07:56] LABS: Basophils # (auto) 0.1 uL; Basophils % (auto) 0.9 % (0.0-2.0); Eosinophils # (auto) 0.3 uL; Eosinophils % (auto) 3.7 % (0.0-7.0); Hematocrit 45.7 % (41.0-53.0); Hemoglobin 15.3 g/dL (13.5-17.5); Lymphocytes # (auto) 1.7 uL; Lymphocytes % (auto) 20.8 % (10.0-50.0); Mean Corpuscular Hemoglobin 31.9 pg (28.0-32.0); Mean Corpuscular Hgb Conc. 33.5 g/dL (32.0-36.0); Mean Corpuscular Volume 95.3 fL (80.0-100.0); Monocytes # (auto) 0.7 uL; Monocytes % (auto) 8.7 % (0.0-12.0); Neutrophils # (auto) 5.4 uL; Neutrophils % (auto) 65.9 % (37.0-80.0); Platelet Count (auto) 299 10^3/uL (140-450); Red Cell Distribution Width 15.4 % (11.8-14.3); White Blood Cell 8.2 10^3/uL (4.4-10.8)
[2017-12-10 08:10] LABS: Alanine Aminotransferase 27 U/L (16-61); Albumin 3.3 g/dL (3.4-5.0); Alkaline Phosphatase 170 U/L (45-117); Anion Gap 7 (5-15); Aspartate Aminotransferase 25 U/L (15-37); BUN/Creatinine Ratio 22.2; Bilirubin, Total 0.4 mg/dL (0.2-1.0); Blood Urea Nitrogen 28 mg/dL (7-18); Calcium 9.3 mg/dL (8.5-10.1); Carbon Dioxide 29 mmol/L (21-32); Chloride 105 mmol/L (98-107); GFR African American 75 mL/min; GFR Non-African American 62 mL/min; Glucose 109 mg/dL (74-106); Magnesium 2.1 mg/dL (1.6-2.6); Potassium 4.3 mmol/L (3.5-5.1); Sodium 141 mmol/L (136-145); Total Protein 7.7 g/dL (6.4-8.2)
[2017-12-10] MEDS ORDERED: methylPREDNISolone SOD SUCC 125 MG/2 ML VL IM ONE (09:30)
[2017-12-10] MEDS ORDERED: IPRATROPIUM BROM 0.5 MG/2.5ML INH SOL NEB ONE (09:30)
[2017-12-10] MEDS ORDERED: ALBUTEROL SULF 2.5 MG/0.5ML(0.5%) NEB SOLN NEB ONE (09:30)
[2017-12-10] MEDS ORDERED: LORazepam 0.5 MG TAB PO ONE (10:30)
[2017-12-10 11:13] VITALS: BP 112/72
== END 2017-12-10 13:11 | disposition home or self-care (01) ==
LOC: ER 06:44
DX: F41.9 Anxiety disorder, unspecified (principal); F17.210 Nicotine dependence, cigarettes, uncomplicated; I25.10 Atherosclerotic heart disease of native coronary artery without angina pectoris; J44.9 Chronic obstructive pulmonary disease, unspecified; K21.9 Gastro-esophageal reflux disease without esophagitis; E78.5 Hyperlipidemia, unspecified; I10 Essential (primary) hypertension; I25.2 Old myocardial infarction; Z79.82 Long term (current) use of aspirin; Z79.899 Other long term (current) drug therapy
CPT/HCPCS: 36415; 71046; 80053; 83735; 84484; 85025; 93005; 94640; 96372; 99285; J2930

== ENCOUNTER 2017-12-11 13:24 | Emergency (ER) | payer MEDICARE, MEDICAID ==
[~2017-12-11] VITALS: Ht 167.6 cm; Wt 72.6 kg
[2017-12-11] MEDS: HYDROcodone-ACET 5/325MG TAB PO ONE (18:02)
[2017-12-11] MEDS: ALBUTEROL SULF 2.5 MG/0.5ML(0.5%) NEB SOLN NEB ONE (18:07)
[2017-12-11 19:20] VITALS: BP 132/77
== END 2017-12-11 19:31 | disposition home or self-care (01) ==
LOC: ER 13:24 → EDBD 13:24 → ER 19:29
DX: J44.9 Chronic obstructive pulmonary disease, unspecified (principal); R07.89 Other chest pain; I25.10 Atherosclerotic heart disease of native coronary artery without angina pectoris; K21.9 Gastro-esophageal reflux disease without esophagitis; I10 Essential (primary) hypertension; I25.2 Old myocardial infarction; E78.00 Pure hypercholesterolemia, unspecified; F17.210 Nicotine dependence, cigarettes, uncomplicated; Z86.73 Personal history of transient ischemic attack (TIA), and cerebral infarction without residual deficits; Z98.61 Coronary angioplasty status
CPT/HCPCS: 94640

== ENCOUNTER 2018-10-11 17:01 | Inpatient (IN) | payer OTHER, MEDICAID ==
[~2018-10-11] VITALS: Ht 167.6 cm; Wt 79.5 kg
[~2018-10-11 17:01] MED LIST changes: -ACET-863 PO; +ACET-947 PO
[2018-10-11] MEDS ORDERED: ACETAMINOPHEN 500 MG TAB PO ONE (17:30)
[2018-10-11] MEDS ORDERED: cloNIDine HCL 0.1 MG TAB PO ONE (17:30)
[2018-10-11 17:58] LABS: Basophils # (auto) 0.1 uL; Basophils % (auto) 0.7 % (0.0-2.0); Eosinophils # (auto) 0.1 uL; Eosinophils % (auto) 2.1 % (0.0-7.0); Hematocrit 46.5 % (41.0-53.0); Hemoglobin 15.7 g/dL (13.5-17.5); Lymphocytes # (auto) 1.3 uL; Lymphocytes % (auto) 17.7 % (10.0-50.0); Mean Corpuscular Hemoglobin 31.4 pg (28.0-32.0); Mean Corpuscular Hgb Conc. 33.7 g/dL (32.0-36.0); Mean Corpuscular Volume 93.2 fL (80.0-100.0); Monocytes # (auto) 0.5 uL; Monocytes % (auto) 6.6 % (0.0-12.0); Neutrophils # (auto) 5.2 uL; Neutrophils % (auto) 72.9 % (37.0-80.0); Nucleated Red Blood Cells % 0.1 %; Platelet Count (auto) 205 10^3/uL (140-450); Red Blood Cells 4.99 10^6/uL (4.5-5.90); Red Cell Distribution Width 13.4 % (11.8-14.3); White Blood Cell 7.1 10^3/uL (4.4-10.8)
[2018-10-11 18:13] LABS: Albumin 3.3 g/dL (3.4-5.0); Anion Gap 6 (5-15); Blood Urea Nitrogen 13 mg/dL (7-18); Calcium 8.1 mg/dL (8.5-10.1); Carbon Dioxide 26 mmol/L (21-32); Chloride 106 mmol/L (98-107); Glucose 118 mg/dL (74-106); Magnesium 2.2 mg/dL (1.6-2.6); Potassium 3.8 mmol/L (3.5-5.1); Sodium 138 mmol/L (136-145)
[2018-10-11 18:24] LABS: Alanine Aminotransferase 21 U/L (16-61); Alkaline Phosphatase 189 U/L (45-117); Aspartate Aminotransferase 13 U/L (15-37); BUN/Creatinine Ratio 15.1; Bilirubin, Total 0.2 mg/dL (0.2-1.0); GFR African American 116 mL/min; GFR Non-African American 95 mL/min; Total Protein 7.1 g/dL (6.4-8.2)
[2018-10-11 19:16] LABS: INR 0.93 (0.9-1.15)
[2018-10-11] MEDS ORDERED: ACETAMINOPHEN 325 MG TAB PO PRN (21:15)
[2018-10-11] MEDS ORDERED: NITROGLYCERIN 0.4 MG SL TAB SL PRN (21:15)
[2018-10-11] MEDS ORDERED: LORazepam 2MG/ML-1ML VIAL IV PRN (21:15)
[2018-10-11] MEDS ORDERED: TEMAZEPAM 15 MG CAP PO PRN (21:15)
[2018-10-11] MEDS ORDERED: ONDANSETRON HCL 4 MG/2 ML VIAL IV PRN (21:15)
[2018-10-11] MEDS ORDERED: MORPHINE SULFATE 10 MG/ML INJ 1ML SDV IV PRN (21:15)
--- NOTE | 2018-10-11 22:41 | NUR ---
Tele admit from ER MANISH TENORIO admitted to tele. Patient oriented to ANAND MARTINEZ RN primary RN, unit, room, bed, and unit policies regarding patient care and visiting hours. Patient is on telemetry box #41. Bed in lowest position, seizure precautions in place. Patient weighed by bedscale and encouraged to call if they need something. Patient is in no visible distress with no SOB. All questions and concerns addressed, patient verbalized understanding.
[2018-10-11 23:00] VITALS: BP 151/92
--- NOTE | 2018-10-11 23:00 | NUR ---
AMA to smoke Patient requested an AMA to smoke. It is signed by myself and patient. Explained to patient our policy and procedures regarding smoking, patient verbalized understanding.
[2018-10-11] MEDS: ATORVASTATIN 20 MG TAB PO SCH (23:11)
[2018-10-11] MEDS: METOPROLOL TARTRATE 25 MG TAB PO SCH (23:11)
[2018-10-11] MEDS: FAMOTIDINE 20 MG TAB PO SCH (23:12)
[2018-10-11] MEDS: carBAMazepine 200 MG TAB PO SCH (23:12)
[2018-10-12 06:01] VITALS: BP 91/61
--- NOTE | 2018-10-12 07:25 | NUR ---
Morning note patient resting in bed with eyes closed. Respirations are even and unlabored on RA. Fall precautions in place with call light within reach. Will continue to monitor q1hr & PRN.
--- NOTE | 2018-10-12 07:50 | NUR ---
Patient ambulated off unit to smoke. Steady gait noted. No s/s of distress noted at this time.
[2018-10-12 08:55] VITALS: BP 122/64
[2018-10-12] MEDS ORDERED: FUROSEMIDE 40 MG TAB PO SCH (10:00)
[2018-10-12] MEDS ORDERED: ASPirin 81 mg TAB PO SCH (10:00)
[2018-10-12] MEDS ORDERED: INFLUENZA QUAD 2018-2019 0.5 ML SYRG IM ONE (10:00)
[2018-10-12] MEDS ORDERED: PNEUMOCOCCAL VACC POLYS 25 MCG/0.5 ML VIAL IM ONE (10:00)
--- NOTE | 2018-10-12 10:33 | NUR ---
was at bedside Dr. Gill was at bedside discussing POC with the patient and this RN. Cardiology to consult with patient.
[2018-10-12] MEDS ORDERED: ASPirin 81 mg TAB PO ONE (10:45)
--- NOTE | 2018-10-12 10:50 | NUR ---
Patient refused Aspirin Patient states "I can't take aspirin."
[2018-10-12] MEDS: CLOPIDOGREL BISULFATE 75 MG TAB PO SCH (10:57)
[2018-10-12] MEDS: METOPROLOL TARTRATE 25 MG TAB PO SCH ×2 (10:58→21:08)
[2018-10-12] MEDS: carBAMazepine 200 MG TAB PO SCH ×2 (10:59→21:08)
[2018-10-12] MEDS: FAMOTIDINE 20 MG TAB PO SCH ×2 (10:59→21:08)
[2018-10-12] MEDS: ENOXAPARIN SOD 40 MG/0.4 ML SYRINGE SC SCH (11:01)
--- NOTE | 2018-10-12 12:02 | NUR ---
Patient ambulated off unit to smoke. Steady gait noted. No s/s of distress noted at this time.
[2018-10-12 12:05] LABS: Urine WBC None Seen /hpf (0 - 3)
--- NOTE | 2018-10-12 12:14 | NUR ---
patient returned to unit no s/s of distress noted at this time.
[2018-10-12 12:42] LABS: Urine Bacteria NONE SEEN /hpf (None Seen); Urine Blood Negative /uL (Negative); Urine Specific Gravity 1.005 (1.001-1.035)
[2018-10-12 12:52] LABS: Alcohol, Urine < 3.0 mg/dL (0-5); Amphetamine Screen, Urine NEGATIVE (NEGATIVE); Barbiturate Scree,Urine NEGATIVE (NEGATIVE); Benzodiazephine Screen, Urine NEGATIVE (NEGATIVE); Cannabinoid Screen, Urine NEGATIVE (NEGATIVE); Cocaine Screen, Urine NEGATIVE (NEGATIVE); Opiate Scree,Urine NEGATIVE (NEGATIVE); Phencyclidine Screen, Urine NEGATIVE (NEGATIVE)
[2018-10-12 13:02] VITALS: BP 135/84
--- NOTE | 2018-10-12 15:54 | NUR ---
Patient ambulated off unit to smoke. Steady gait noted. No s/s of distress noted at this time.
--- NOTE | 2018-10-12 16:15 | NUR ---
RE: Cardiology consult Spoke with Dr. Villarreal. Notified MD of pending cardiology consult and patient's status. MD verbalized understanding.
[2018-10-12 17:34] VITALS: BP 146/86
--- NOTE | 2018-10-12 18:40 | NUR ---
End of shift Patient denies CP and/or SOB at this time. Patient denies needing assistance at this time. Fall precautions in place. Patient stated "I'm going to go smoke." Patient ambulated off unit with a steady gait. No s/s of distress noted at time of patient leaving the unit. Will endorse care to KENY Ruiz.
[2018-10-12] MEDS: ATORVASTATIN 20 MG TAB PO SCH (21:07)
[2018-10-12] MEDS: HYDROcodone-ACET 5/325MG TAB PO PRN (21:08)
--- NOTE | 2018-10-12 22:00 | NUR ---
Patient went downstairs to smoke.
[2018-10-12 22:05] VITALS: BP 135/82
--- NOTE | 2018-10-12 22:16 | NUR ---
Patient is back in room.
[2018-10-13 05:27] VITALS: BP 93/52
[2018-10-13 07:08] LABS: Cholesterol 135 mg/dL (< 200)
[2018-10-13 07:12] LABS: HDL Cholesterol 45 mg/dL (40-59); LDL Cholesterol 81 mg/dL (< 100); Triglycerides 110 mg/dL (< 150)
--- NOTE | 2018-10-13 07:50 | NUR ---
Patient in bed, awake, oriented x4. No acute distress noted. With signed AMA to smoke off unit.
[2018-10-13 09:21] VITALS: BP 114/73
--- NOTE | 2018-10-13 09:37 | NUR ---
IV cannula on the floor. Patient showed his left antecubital area, with Tegaderm, no bleeding noted. Will start a new IV line.
[2018-10-13] MEDS: ASPirin 81 mg TAB PO SCH (10:00)
[2018-10-13] MEDS: ENOXAPARIN SOD 40 MG/0.4 ML SYRINGE SC SCH (10:00)
[2018-10-13] MEDS: CLOPIDOGREL BISULFATE 75 MG TAB PO SCH (10:04)
[2018-10-13] MEDS: METOPROLOL TARTRATE 25 MG TAB PO SCH ×2 (10:04→21:37)
[2018-10-13] MEDS: carBAMazepine 200 MG TAB PO SCH ×2 (10:04→21:37)
[2018-10-13] MEDS: FAMOTIDINE 20 MG TAB PO SCH ×2 (10:05→21:37)
--- NOTE | 2018-10-13 10:07 | NUR ---
Patient refused Aspirin. Patient is ambulatory, with signed AMA to smoke off unit. Patient refused Lovenox SC.
--- NOTE | 2018-10-13 10:12 | NUR ---
Patient walking on the hallway, stated he's going off unit to smoke. Explained to patient he can be of unit no more that 30 minutes, will insert a new IV line when he comes back to the room. Patient verbalized understanding. Addendum: 10/13/18 at 1014 by Bethany Zamora RN off unit
--- NOTE | 2018-10-13 10:30 | NUR ---
Received a call from Dr. Gill. made aware patient has no complaints of chest pain. Patient is off unit to smoke downstairs/off unit. Dr. Gill to discharge the patient later.
--- NOTE | 2018-10-13 10:35 | NUR ---
Patient back to room. No acute distress noted.
--- NOTE | 2018-10-13 11:45 | NUR ---
Clonidine PO given for SBP>160 as ordered.
[2018-10-13] MEDS: HYDROcodone-ACET 5/325MG TAB PO PRN ×2 (11:47→20:20)
[2018-10-13] MEDS: cloNIDine HCL 0.1 MG TAB PO PRN (11:47)
--- NOTE | 2018-10-13 11:47 | NUR ---
BP = 162/100. Patient complained of chest discomfort. [place] 5/325 PO as ordered given for pain.
--- NOTE | 2018-10-13 12:28 | NUR ---
Dr. Gill came over. to call Phil or Dr. Flores for follow up Cardiology Consult.
--- NOTE | 2018-10-13 12:30 | NUR ---
Dr. Gill called Dr. Flores. ordered to start a new IV line.
--- NOTE | 2018-10-13 13:02 | NUR ---
New IV line started on the left wrist, 22 gauge, in one attempt, intact and patent.
--- NOTE | 2018-10-13 13:20 | NUR ---
Patient walking on the hallway to smoke downstairs. Signed AMA form placed in the chart.
--- NOTE | 2018-10-13 13:50 | NUR ---
Patient back in the room. No acute distress noted.
[2018-10-13 17:13] VITALS: BP 146/96
--- NOTE | 2018-10-13 18:38 | NUR ---
Patient off unit to smoke downstairs. Signed AMA form placed in the patient's chart.
--- NOTE | 2018-10-13 19:14 | NUR ---
Opening Shift Note Assumed care of patient, awake and alert. No S/S of distress/SOB or pain. Instructed on POC and to call for assist PRN, will continue to monitor for changes Q1hr and PRN.
[2018-10-13] MEDS: ATORVASTATIN 20 MG TAB PO SCH (21:37)
[2018-10-13 22:15] VITALS: BP 132/87
[2018-10-14 05:01] VITALS: BP 93/52
--- NOTE | 2018-10-14 07:32 | NUR ---
Patient is resting in bed, no S/S of distress. Endorsed care to Bethany BUSTILLO.
--- NOTE | 2018-10-14 07:55 | NUR ---
Patient sitting on bed, awake, oriented x4. No acute distress noted.
[2018-10-14 09:00] VITALS: BP 93/51
[2018-10-14] MEDS: METOPROLOL TARTRATE 25 MG TAB PO SCH ×2 (09:51→21:34)
[2018-10-14] MEDS: ASPirin 81 mg TAB PO SCH (09:52)
[2018-10-14] MEDS: ENOXAPARIN SOD 40 MG/0.4 ML SYRINGE SC SCH (09:52)
[2018-10-14] MEDS: CLOPIDOGREL BISULFATE 75 MG TAB PO SCH (09:53)
[2018-10-14] MEDS: carBAMazepine 200 MG TAB PO SCH ×2 (09:53→21:34)
[2018-10-14] MEDS: FAMOTIDINE 20 MG TAB PO SCH ×2 (09:53→21:34)
--- NOTE | 2018-10-14 11:50 | NUR ---
Patient walking on the hallway to go downstairs to smoke. Signed AMA form placed in the patient's chart.
--- NOTE | 2018-10-14 12:54 | NUR ---
Radha Hope at bedside. ordered Med Neb PRN Q4 for SOB, Albuterol/Atrovent breathing treatment Q4, Levaquin 500 MG IV Daily, Phenergan w/ codeine for cough. made aware patient has signed AMA to smoke off unit.
[2018-10-14 13:00] VITALS: BP 156/99
[2018-10-14] MEDS ORDERED: PROMETHAZINE W/CODEINE 5 ML ORAL SYRUP PO PRN (13:00)
[2018-10-14] MEDS ORDERED: ALBUTEROL SULF 2.5 MG/0.5ML(0.5%) NEB SOLN NEB PRN (13:00)
--- NOTE | 2018-10-14 13:51 | NUR ---
Patient back to room from smoking off unit. No acute distress noted.
[2018-10-14] MEDS: ALBUTEROL SULF 2.5 MG/0.5ML(0.5%) NEB SOLN NEB SCH ×2 (13:57→18:44)
[2018-10-14] MEDS: IPRATROPIUM BROM 0.5 MG/2.5ML INH SOL NEB SCH ×2 (13:57→18:44)
[2018-10-14] MEDS: LEVOFLOXACIN 500MG 100 ML IV SCH (14:30)
--- NOTE | 2018-10-14 14:38 | NUR ---
Urinal provided as requested by the patient.
--- NOTE | 2018-10-14 15:54 | NUR ---
Patient walking on the hallway to smoke off unit. Signed AMA form to smoke placed in the patient's chart.
--- NOTE | 2018-10-14 16:05 | NUR ---
Patient back to room. No acute distress noted.
[2018-10-14 17:13] VITALS: BP 125/90
--- NOTE | 2018-10-14 18:40 | NUR ---
Dr. Caraballo at bedside. made aware patient has signed AMA to smoke off unit. Dr. Caraballo ordered to follow up with Radha Hope if he's going to do a procedure on Tuesday, if not, patient is for possible discharge tomorrow.
--- NOTE | 2018-10-14 19:15 | NUR ---
Opening Note Received change of shift report from day shift RN. Patient is awake, alert and oriented x4. No signs or symptoms of distress or shortness of breath at this time. Patient states he is having "pain all over" 8/, and is requesting pain medication. Reviewed plan of care with patient, patient verbalized understanding. Will continue to monitor Q1 hour and PRN.
[2018-10-14] MEDS: HYDROcodone-ACET 5/325MG TAB PO PRN (20:22)
[2018-10-14] MEDS: ATORVASTATIN 20 MG TAB PO SCH (21:34)
[2018-10-14 22:00] VITALS: BP 132/88
[2018-10-15 04:23] VITALS: BP 106/59
[2018-10-15 05:00] VITALS: BP 93/66
[2018-10-15] MEDS: IPRATROPIUM BROM 0.5 MG/2.5ML INH SOL NEB SCH ×4 (07:19→18:26)
[2018-10-15] MEDS: ALBUTEROL SULF 2.5 MG/0.5ML(0.5%) NEB SOLN NEB SCH ×4 (07:19→18:26)
--- NOTE | 2018-10-15 07:19 | NUR ---
PT. REFUSED MN. TX. THIS AM., PT. STATED "ITS TO EARLY", I WILL TAKE ONE LATER NO RESP. DISTRESS OR SOB NOTED AT THIS TIME. NO TX. GIVEN, HR=68,RR=20,SP02=92% ON RA.
--- NOTE | 2018-10-15 07:27 | NUR ---
Closing Note Report given to day shift RN. Patient is awake in bed, alert and oriented x4. No signs or symptoms of distress noted at this time.
[2018-10-15 08:30] VITALS: BP 134/80
--- NOTE | 2018-10-15 08:59 | NUR ---
Called Radha Hope Spoke with Blaze, to relay to Dr. Flores if he's planning to do a Cardiac procedure on Tuesday, if not Dr. Caraballo is planning to discharge the patient today. Waiting for Dr. Flores to call back.
--- NOTE | 2018-10-15 09:06 | NUR ---
Patient walking on the hallway to go off unit to smoke.
--- NOTE | 2018-10-15 09:15 | NUR ---
Patient back to room.
[2018-10-15] MEDS: ASPirin 81 mg TAB PO SCH (09:25)
[2018-10-15] MEDS: ENOXAPARIN SOD 40 MG/0.4 ML SYRINGE SC SCH (09:26)
[2018-10-15] MEDS: LEVOFLOXACIN 500MG 100 ML IV SCH (09:29)
[2018-10-15] MEDS: carBAMazepine 200 MG TAB PO SCH ×2 (09:29→22:16)
[2018-10-15] MEDS: METOPROLOL TARTRATE 25 MG TAB PO SCH ×2 (09:30→22:18)
[2018-10-15] MEDS: FAMOTIDINE 20 MG TAB PO SCH ×2 (09:30→22:16)
[2018-10-15] MEDS: CLOPIDOGREL BISULFATE 75 MG TAB PO SCH (09:30)
--- NOTE | 2018-10-15 09:54 | NUR ---
Called Radha Hope that Dr. Caraballo asked if he's going to do a cardiac procedure on the patient tomorrow, Tuesday; if not Dr. Caraballo is planning to discharge the patient today. Dr. Flores ordered Left Heart Cath tomorrow at [address] Caraballo. Called Ed Maldonado, she will put the patient on the list for [facility] tomorrow at 0700 am at [facility]. Charge Nurse Shanna made aware.
--- NOTE | 2018-10-15 10:30 | NUR ---
New IV line started on the left forearm, 20 gauge, intact and patent. Patient able to tolerate it. Previous IV line on the left wrist, half pulled out/kinked, leaking noted, IV line removed, IV catheter intact, pressure dressing applied.
--- NOTE | 2018-10-15 11:10 | NUR ---
About 200 ml of clear, yellowish urine emptied from the urinal.
[2018-10-15 11:27] LABS: Basophils # (auto) 0.1 uL; Basophils % (auto) 0.8 % (0.0-2.0); Eosinophils # (auto) 0.1 uL; Eosinophils % (auto) 2.1 % (0.0-7.0); Hematocrit 46.3 % (41.0-53.0); Hemoglobin 15.7 g/dL (13.5-17.5); Lymphocytes # (auto) 1.1 uL; Lymphocytes % (auto) 16.1 % (10.0-50.0); Mean Corpuscular Hemoglobin 31.7 pg (28.0-32.0); Mean Corpuscular Volume 93.3 fL (80.0-100.0); Monocytes # (auto) 0.5 uL; Neutrophils # (auto) 5.1 uL; Nucleated Red Blood Cells % 0.1 %; Platelet Count (auto) 222 10^3/uL (140-450); Red Blood Cells 4.96 10^6/uL (4.5-5.90); Red Cell Distribution Width 13.5 % (11.8-14.3); White Blood Cell 6.8 10^3/uL (4.4-10.8)
[2018-10-15 11:43] LABS: Albumin 3.4 g/dL (3.4-5.0); Calcium 8.4 mg/dL (8.5-10.1)
[2018-10-15 11:46] LABS: BUN/Creatinine Ratio 20.8; Bilirubin, Total 0.2 mg/dL (0.2-1.0); Total Protein 7.4 g/dL (6.4-8.2)
--- NOTE | 2018-10-15 12:19 | NUR ---
Dr. Caraballo at bedside. Patient scheduled for left heart cath tomorrow at 0700 am as per Fermín Hope.
--- NOTE | 2018-10-15 12:21 | NUR ---
Patient off unit to go downstairs to smoke.
--- NOTE | 2018-10-15 12:45 | NUR ---
Patient back to room.
[2018-10-15 12:54] VITALS: BP 111/79
--- NOTE | 2018-10-15 15:06 | NUR ---
Nutrition Assessment Notes please see attached link fro complete assessment Est. Needs based on BW (78 kg): 7837-5866 kcal (23-25 kcal/kgBW), 78-85 gms pro (1.0-1.1 gms/kgBW). Will continue to monitor pertinent labs and reassess nutrient need prn Addendum: 10/15/18 at [address] Amended: Links added.
[2018-10-15 16:42] VITALS: BP 135/79
--- NOTE | 2018-10-15 18:10 | NUR ---
Patient off unit to smoke downstairs.
--- NOTE | 2018-10-15 18:30 | NUR ---
Patient back to room. No acute distress noted.
--- NOTE | 2018-10-15 19:00 | NUR ---
NPO after midnight for left heart cath tomorrow.
--- NOTE | 2018-10-15 19:20 | NUR ---
Opening Note Received change of shift report from day shift RN. Patient is awake, alert and oriented x4. No signs or symptoms of distress or shortness of breath at this time. Patient denies pain at this time. Reviewed plan of care with patient, patient verbalized understanding. Patient is to be NPO after midnight for a left heart cath tomorrow. Bed in low and locked position, call light within reach. Will continue to monitor Q1 hour and PRN.
[2018-10-15 22:00] VITALS: BP 135/84
[2018-10-15] MEDS: HYDROcodone-ACET 5/325MG TAB PO PRN (22:16)
[2018-10-15] MEDS: ATORVASTATIN 20 MG TAB PO SCH (22:16)
--- NOTE | 2018-10-16 00:34 | NUR ---
Patient resting comfortably in bed with eyes closed No signs or symptoms of distress noted at this time. Bed in low and locked position, call light within reach. Will continue to monitor Q1 hour and PRN.
[2018-10-16 05:00] VITALS: BP 116/68
--- NOTE | 2018-10-16 05:10 | NUR ---
Chlorhexidine bath given patient linens, gown and socks changed. Patient tolerated well. Will continue to monitor Q1 hour and PRN.
[2018-10-16] MEDS: ALBUTEROL SULF 2.5 MG/0.5ML(0.5%) NEB SOLN NEB SCH ×5 (06:00→18:38)
[2018-10-16] MEDS: IPRATROPIUM BROM 0.5 MG/2.5ML INH SOL NEB SCH ×5 (06:00→18:38)
--- NOTE | 2018-10-16 06:33 | NUR ---
Patient taken to [facility] for left heart cath
[2018-10-16 06:34] LABS: Basophils # (auto) 0.1 uL; Basophils % (auto) 0.9 % (0.0-2.0); Eosinophils # (auto) 0.3 uL; Eosinophils % (auto) 3.9 % (0.0-7.0); Hematocrit 47.1 % (41.0-53.0); Hemoglobin 16.1 g/dL (13.5-17.5); Lymphocytes # (auto) 1.5 uL; Lymphocytes % (auto) 22.8 % (10.0-50.0); Mean Corpuscular Hemoglobin 32.1 pg (28.0-32.0); Mean Corpuscular Hgb Conc. 34.3 g/dL (32.0-36.0); Mean Corpuscular Volume 93.8 fL (80.0-100.0); Monocytes # (auto) 0.6 uL; Monocytes % (auto) 8.2 % (0.0-12.0); Neutrophils # (auto) 4.3 uL; Neutrophils % (auto) 64.2 % (37.0-80.0); Nucleated Red Blood Cells % 0.1 %; Platelet Count (auto) 215 10^3/uL (140-450); Red Blood Cells 5.02 10^6/uL (4.5-5.90); Red Cell Distribution Width 13.6 % (11.8-14.3); White Blood Cell 6.8 10^3/uL (4.4-10.8)
[2018-10-16 06:53] LABS: Anion Gap 4 (5-15); Calcium 8.5 mg/dL (8.5-10.1); Carbon Dioxide 27 mmol/L (21-32); Chloride 103 mmol/L (98-107); Glucose 96 mg/dL (74-106); INR 0.92 (0.9-1.15); Partial Thromboplastin Time 22.7 sec (23.78-33.04); Potassium 4.8 mmol/L (3.5-5.1); Prothrombin Time 9.9 sec (9.27-12.13); Sodium 134 mmol/L (136-145)
[2018-10-16 06:55] LABS: GFR African American > 60 mL/min; GFR Non-African American > 60 mL/min
[2018-10-16] MEDS ORDERED: LIDOCAINE 2%HCL (LOCAL ANESTH.) INJ 20ML MDV ONE (07:06)
[2018-10-16] MEDS ORDERED: IOHEXOL 350 MG/ML 100ML IJ ONE (07:06)
--- NOTE | 2018-10-16 07:20 | NUR ---
Opening Shift Note Received report from Deepali RN. Assumed care of patient, off unit. Patient is at [facility] ongoing LHC by Dr. Fermín Flores. Will wait for the patient.
[2018-10-16] MEDS ORDERED: SODIUM CHL 0.9% 0 ML ONE (07:24)
[2018-10-16] MEDS ORDERED: fentaNYL CITRATE 100 MCG/2 ML VL ONE (07:24)
[2018-10-16] MEDS ORDERED: MIDAZOLAM HCL 1MG/1ML-2 ML VIAL ONE (07:24)
[2018-10-16] MEDS ORDERED: ANGIOMAX 250 MG VIAL IV ONE (07:24)
--- NOTE | 2018-10-16 07:44 | NUR ---
Closing Note Report given to day shift RN. 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
[2018-10-16 07:48] LABS: BUN/Creatinine Ratio 22.7; Blood Urea Nitrogen 22 mg/dL (7-18)
[2018-10-16 08:00] VITALS: BP 126/85
[2018-10-16] MEDS ORDERED: SODIUM CHLORIDE 0.9% 1,000 ML IV SCH (08:15)
--- NOTE | 2018-10-16 09:00 | NUR ---
RECEIVED PATIENT FROM [facility], NO STENTS, PER JEWELL BUSTILLO REPORT. INSTRUCTED PATIENT TO BE FLAT ON BED UNTIL 1300. PATIENT VERBALIZED UNDERSTANDING. WILL CONTINUE CARE.
[2018-10-16] MEDS: METOPROLOL TARTRATE 25 MG TAB PO SCH (09:59)
[2018-10-16] MEDS: CLOPIDOGREL BISULFATE 75 MG TAB PO SCH (09:59)
[2018-10-16] MEDS: FAMOTIDINE 20 MG TAB PO SCH (09:59)
[2018-10-16] MEDS: carBAMazepine 200 MG TAB PO SCH (09:59)
[2018-10-16] MEDS: ASPirin 81 mg TAB PO SCH (10:00)
[2018-10-16] MEDS: ENOXAPARIN SOD 40 MG/0.4 ML SYRINGE SC SCH (10:00)
[2018-10-16] MEDS: LEVOFLOXACIN 500MG 100 ML IV SCH (10:00)
--- NOTE | 2018-10-16 10:15 | NUR ---
PATIENT SEEN BENDING HIS KNEES AND STANDING UP. NOTED MILD BLOOD DRAINAGE FROM ACCESS SITE OF LHC. EMPHASIZED PATIENT TO BE FLAT ON BAD UNTIL 1300.
--- NOTE | 2018-10-16 11:00 | NUR ---
Dr. Gill at bedside.
[2018-10-16] MEDS ORDERED: MET25T PO (11:10)
[2018-10-16] MEDS ORDERED: CLOP75TA28 PO (11:10)
[2018-10-16 13:24] VITALS: BP 126/85
[2018-10-16 13:59] VITALS: BP 126/85
[2018-10-16] MEDS: cloNIDine HCL 0.1 MG TAB PO PRN (16:23)
--- NOTE | 2018-10-16 16:24 | NUR ---
PATIENT'S BLOOD PRESSURE IS 170/131MMHG. GAVE CATAPRES 0.1MG PO PRN ORDERED BY MD. WILL WAIT FOR THE BLOOD PRESSURE TO BE LOWER BEFORE SENDING THE PATIENT HOME. WILL CONTINUE TO MONITOR. CHANGED RIGHT GROIN DRESSING, NOTED NO S/SX OF HEMATOMA AND BLEEDING. PATIENT MADE AWARE AND VERBALIZED UNDERSTANDING.
[2018-10-16 17:12] VITALS: BP 170/131
--- NOTE | 2018-10-16 17:15 | NUR ---
RECHECKED BLOOD PRESSURE AFTER AN HOUR OF CATAPRES PO GIVEN: 172/108MMHG. PAGED HOSPITALIST. WILL WAIT FOR CALL BACK.
[2018-10-16] MEDS ORDERED: METOPROLOL TARTRATE 1MG/1ML-5ML VIAL IV ONE (17:45)
--- NOTE | 2018-10-16 17:45 | NUR ---
HEBERT ADEN CALLED BACK AND SAID HE WILL CHECK THE PATIENT. RECEIVED TELEPHONE ORDER TO PUT BACK TELEMETRY MONITORING BOX AND INSERT AN IV. ONCE BLOOD PRESSURE AND HEART RATE ARE OK, PATIENT CAN GO HOME TODAY. PATIENT MADE AWARE AND VERBALIZED UNDERSTANDING.
--- NOTE | 2018-10-16 17:55 | NUR ---
PLACED TELEMETRY MONITORING BOX #41, READING IS SINUS TACHYCARDIA AT 105/MIN. TRIED IV INSERTION 2X BUT FAILED. GAETANO BUSTILLO WILL TRY TO INSERT AN IV. ONCE IV IS ESTABLISHED, WILL GIVE THE LOPRESSOR IV ORDERED BY KEIKO AMBROSIO. CALLED [facility] AND SAID THAT THEIR SERVICE IS 25/04.
--- NOTE | 2018-10-16 18:15 | NUR ---
IV insertion New IV access obtained, via clean sterile technique by inserting gauge catheter 20 at right wrist after 1 attempt by Shanell BUSTILLO. IV secured properly. No trauma to site. Patient tolerated well.
--- NOTE | 2018-10-16 18:17 | NUR ---
GAVE LOPRESSOR 2.5MG IV X 1 ORDERED BY HEBERT ADEN. WILL RECHECK VITAL SIGNS AFTER 30MINS. PATIENT IS AWARE THAT HE WILL STILL GO HOME TODAY ONCE BP AND HEART RATE ARE OK. WILL ENDORSE TO NIGHT NURSE.
--- NOTE | 2018-10-16 18:51 | NUR ---
RECHECKED BLOOD PRESSURE: 146/97MMHG, HEART RATE OF 91/MIN. CALLED [facility]I TO [facility] PATIENT.
== END 2018-10-16 19:15 | disposition home or self-care (01) | DRG 287 ==
LOC: EDBD 17:01 → ER 17:10 → TELE 21:17 → TELE-CENTR 22:40
PROVIDERS: ADMIT Nurse Practitioner; ATTEND Internal Medicine
PROC: 4A023N7 Measurement of Cardiac Sampling and Pressure, Left Heart, Percutaneous Approach (ICD-10-PCS; principal; 2018-10-16)
PROC: B2151ZZ Fluoroscopy of Left Heart using Low Osmolar Contrast (ICD-10-PCS; 2018-10-16)
PROC: B2111ZZ Fluoroscopy of Multiple Coronary Arteries using Low Osmolar Contrast (ICD-10-PCS; 2018-10-16)
PROC: B41F1ZZ Fluoroscopy of Right Lower Extremity Arteries using Low Osmolar Contrast (ICD-10-PCS; 2018-10-16)
DX: I25.110 Atherosclerotic heart disease of native coronary artery with unstable angina pectoris (principal); J44.1 Chronic obstructive pulmonary disease with (acute) exacerbation; J44.0 Chronic obstructive pulmonary disease with (acute) lower respiratory infection; I25.5 Ischemic cardiomyopathy; I10 Essential (primary) hypertension; Z95.5 Presence of coronary angioplasty implant and graft; E11.9 Type 2 diabetes mellitus without complications; E78.5 Hyperlipidemia, unspecified; F17.210 Nicotine dependence, cigarettes, uncomplicated; G40.909 Epilepsy, unspecified, not intractable, without status epilepticus; Z91.19 Patient's noncompliance with other medical treatment and regimen; Z86.73 Personal history of transient ischemic attack (TIA), and cerebral infarction without residual deficits; Z82.49 Family history of ischemic heart disease and other diseases of the circulatory system; M47.894 Other spondylosis, thoracic region; K21.9 Gastro-esophageal reflux disease without esophagitis; I25.2 Old myocardial infarction; Z91.048 Other nonmedicinal substance allergy status; J22 Unspecified acute lower respiratory infection; Z23 Encounter for immunization; S02.2XXD Fracture of nasal bones, subsequent encounter for fracture with routine healing
CPT/HCPCS: 36415; 70450; 71046; 80048; 80053; 80061; 80307; 81001; 83036; 83735; 83880; 84443; 84484; 85025; 85610; 85730; 86850; 86900; 86901; 90674; 93005; 93306; 94640; 94761; 99152; A6257; G0378; J1956; J2250

== ENCOUNTER 2018-10-25 15:45 | Emergency (ER) | payer OTHER, MEDICAID ==
[~2018-10-25] VITALS: Ht 162.6 cm; Wt 74.8 kg
[~2018-10-25 15:45] MED LIST changes: -ASPI81TA27 PO; +CLOP75TA28 PO; -DOX100T PO; +MET25T PO; -METO25TA62 PO; -OMEP20CA74
[2018-10-25 17:05] LABS: Urine Bacteria NONE SEEN /hpf (None Seen); Urine Blood Negative /uL (Negative); Urine Specific Gravity 1.031 (1.001-1.035); Urine WBC 1 /hpf (0 - 3)
[2018-10-25 17:17] LABS: Basophils # (auto) 0 uL; Basophils % (auto) 0.4 % (0.0-2.0); Eosinophils # (auto) 0.2 uL; Eosinophils % (auto) 2.1 % (0.0-7.0); Hematocrit 46.9 % (41.0-53.0); Hemoglobin 16.2 g/dL (13.5-17.5); Lymphocytes # (auto) 1.3 uL; Lymphocytes % (auto) 16.5 % (10.0-50.0); Mean Corpuscular Hemoglobin 32.1 pg (28.0-32.0); Mean Corpuscular Hgb Conc. 34.6 g/dL (32.0-36.0); Mean Corpuscular Volume 92.8 fL (80.0-100.0); Monocytes # (auto) 0.4 uL; Monocytes % (auto) 5.1 % (0.0-12.0); Neutrophils % (auto) 75.9 % (37.0-80.0); Nucleated Red Blood Cells % 0.1 %; Platelet Count (auto) 219 10^3/uL (140-450); Red Blood Cells 5.06 10^6/uL (4.5-5.90); Red Cell Distribution Width 13.3 % (11.8-14.3); White Blood Cell 7.9 10^3/uL (4.4-10.8)
[2018-10-25 17:34] LABS: Albumin 3.5 g/dL (3.4-5.0); Anion Gap 6 (5-15); Blood Urea Nitrogen 15 mg/dL (7-18); Carbon Dioxide 27 mmol/L (21-32); Chloride 108 mmol/L (98-107); Glucose 118 mg/dL (74-106); Magnesium 2.2 mg/dL (1.6-2.6); Potassium 4.1 mmol/L (3.5-5.1); Sodium 141 mmol/L (136-145)
[2018-10-25 17:36] LABS: Alanine Aminotransferase 21 U/L (16-61); Aspartate Aminotransferase 13 U/L (15-37); BUN/Creatinine Ratio 14.7; GFR African American > 60 mL/min; GFR Non-African American > 60 mL/min
[2018-10-25 17:42] LABS: Alkaline Phosphatase 178 U/L (45-117); Bilirubin, Total 0.2 mg/dL (0.2-1.0); Total Protein 7.3 g/dL (6.4-8.2)
[2018-10-26] MEDS ORDERED: PANTOPRAZOLE 40 MG TAB PO ONE (07:45)
[2018-10-26] MEDS ORDERED: IBUPROFEN 800 MG TAB PO ONE (07:45)
[2018-10-26] MEDS ORDERED: cloNIDine HCL 0.1 MG TAB PO ONE (07:45)
[2018-10-26 07:46] VITALS: BP 162/99
== END 2018-10-26 08:03 | disposition home or self-care (01) ==
LOC: EDBD 15:45 → ER 15:50 → TELE 10-26 04:59 → UNDOADMIN 10-26 04:59 → ER 10-26 08:03
DX: I10 Essential (primary) hypertension (principal); I25.2 Old myocardial infarction; K21.9 Gastro-esophageal reflux disease without esophagitis; F17.210 Nicotine dependence, cigarettes, uncomplicated; Z86.73 Personal history of transient ischemic attack (TIA), and cerebral infarction without residual deficits; Z90.89 Acquired absence of other organs; Z98.61 Coronary angioplasty status
CPT/HCPCS: 36415; 71046; 80053; 81001; 83735; 84484; 85025; 93005

== ENCOUNTER 2018-12-11 15:38 | Emergency (ER) | payer OTHER, MEDICAID ==
[~2018-12-11] VITALS: Ht 165.1 cm; Wt 74.8 kg
[2018-12-11] MEDS ORDERED: ALBUTEROL SULF 2.5 MG/0.5ML(0.5%) NEB SOLN NEB ONE (20:15)
[2018-12-11] MEDS ORDERED: IPRATROPIUM BROM 0.5 MG/2.5ML INH SOL NEB ONE (20:15)
[2018-12-11 20:18] VITALS: BP 128/79
== END 2018-12-11 20:34 | disposition home or self-care (01) ==
LOC: ER 15:48
DX: J40 Bronchitis, not specified as acute or chronic (principal); I10 Essential (primary) hypertension; I25.2 Old myocardial infarction; K21.9 Gastro-esophageal reflux disease without esophagitis; F17.210 Nicotine dependence, cigarettes, uncomplicated; Z90.89 Acquired absence of other organs; Z98.61 Coronary angioplasty status; Z86.73 Personal history of transient ischemic attack (TIA), and cerebral infarction without residual deficits
CPT/HCPCS: 71046; 94640; 99283; J7611; J7644

== ENCOUNTER 2018-12-24 12:40 | Emergency (ER) | payer OTHER, MEDICAID ==
[~2018-12-24] VITALS: Ht 167.6 cm; Wt 79.4 kg
[2018-12-24 15:22] VITALS: BP 165/98
== END 2018-12-24 15:30 | disposition home or self-care (01) ==
LOC: ER 12:40
DX: R07.89 Other chest pain (principal); J20.9 Acute bronchitis, unspecified; I25.10 Atherosclerotic heart disease of native coronary artery without angina pectoris; K21.9 Gastro-esophageal reflux disease without esophagitis; E78.5 Hyperlipidemia, unspecified; I10 Essential (primary) hypertension; I25.2 Old myocardial infarction; F17.210 Nicotine dependence, cigarettes, uncomplicated; Z86.73 Personal history of transient ischemic attack (TIA), and cerebral infarction without residual deficits; Z98.61 Coronary angioplasty status
CPT/HCPCS: 71046; 93005

== ENCOUNTER 2019-01-14 12:37 | Emergency (ER) | payer OTHER, MEDICAID ==
[~2019-01-14] VITALS: Ht 167.6 cm; Wt 76.7 kg
[2019-01-14 12:47] VITALS: BP 169/89
== END 2019-01-14 14:30 | disposition home or self-care (01) ==
LOC: ER 12:37
DX: J40 Bronchitis, not specified as acute or chronic (principal); R51 Headache; K21.9 Gastro-esophageal reflux disease without esophagitis; E78.5 Hyperlipidemia, unspecified; I10 Essential (primary) hypertension; I25.2 Old myocardial infarction; F17.210 Nicotine dependence, cigarettes, uncomplicated; Z98.61 Coronary angioplasty status; Z86.73 Personal history of transient ischemic attack (TIA), and cerebral infarction without residual deficits
CPT/HCPCS: 71046

== ENCOUNTER 2019-01-20 09:41 | Emergency (ER) | payer OTHER, MEDICAID ==
[~2019-01-20] VITALS: Ht 167.6 cm; Wt 74.8 kg
[2019-01-20 10:29] LABS: Basophils # (auto) 0 uL; Basophils % (auto) 0.3 % (0.0-2.0); Eosinophils # (auto) 0 uL; Eosinophils % (auto) 0.1 % (0.0-7.0); Hematocrit 48.3 % (41.0-53.0); Hemoglobin 16.4 g/dL (13.5-17.5); Lymphocytes # (auto) 1.3 uL; Lymphocytes % (auto) 14.2 % (10.0-50.0); Mean Corpuscular Hemoglobin 31.5 pg (28.0-32.0); Mean Corpuscular Volume 92.8 fL (80.0-100.0); Monocytes # (auto) 0.8 uL; Neutrophils # (auto) 6.8 uL; Neutrophils % (auto) 76.4 % (37.0-80.0); Nucleated Red Blood Cells % 0.2 %; Platelet Count (auto) 265 10^3/uL (140-450); Red Cell Distribution Width 14.8 % (11.8-14.3); White Blood Cell 8.9 10^3/uL (4.4-10.8)
[2019-01-20 10:29] LABS: Urine Bacteria NONE SEEN /hpf (None Seen); Urine Blood Negative /uL (Negative); Urine WBC <1 /hpf (0 - 3)
[2019-01-20 10:39] LABS: Alanine Aminotransferase 38 U/L (16-61); Anion Gap 8 (5-15); Blood Urea Nitrogen 21 mg/dL (7-18); Calcium 8.8 mg/dL (8.5-10.1); Carbon Dioxide 28 mmol/L (21-32); Chloride 103 mmol/L (98-107); Glucose 60 mg/dL (74-106); Potassium 3.8 mmol/L (3.5-5.1); Sodium 139 mmol/L (136-145)
[2019-01-20 10:44] LABS: Alkaline Phosphatase 161 U/L (45-117); Aspartate Aminotransferase 21 U/L (15-37); BUN/Creatinine Ratio 21.9; Bilirubin, Total 0.3 mg/dL (0.2-1.0); GFR African American 102 mL/min; GFR Non-African American 84 mL/min; Total Protein 7.8 g/dL (6.4-8.2)
[2019-01-20] MEDS ORDERED: ALBUTEROL SULF 2.5 MG/0.5ML(0.5%) NEB SOLN NEB ONE (10:45)
[2019-01-20] MEDS ORDERED: KETOROLAC TROMETH 60MG/2ML VIAL IM ONE (10:45)
[2019-01-20] MEDS ORDERED: cefTRIAXone SOD 1,000 MG VL IM ONE (10:45)
[2019-01-20 11:00] VITALS: BP 117/70
[2019-01-20] MEDS ORDERED: LIDOCAINE 1% HCL (LOCAL ANESTH.) INJ 20ML MDV IJ ONE (11:00)
== END 2019-01-20 12:25 | disposition home or self-care (01) ==
LOC: ER 09:45
DX: J40 Bronchitis, not specified as acute or chronic (principal); I25.10 Atherosclerotic heart disease of native coronary artery without angina pectoris; K21.9 Gastro-esophageal reflux disease without esophagitis; E78.5 Hyperlipidemia, unspecified; I10 Essential (primary) hypertension; I25.2 Old myocardial infarction; F17.210 Nicotine dependence, cigarettes, uncomplicated; Z79.01 Long term (current) use of anticoagulants; Z79.899 Other long term (current) drug therapy; Z86.73 Personal history of transient ischemic attack (TIA), and cerebral infarction without residual deficits; Z98.61 Coronary angioplasty status
CPT/HCPCS: 36415; 80053; 81001; 82962; 84484; 85025; 94640; 96372; 99283; J0696; J1885; J2001; J7611

== ENCOUNTER 2019-02-07 12:36 | Emergency (ER) | payer MEDICARE, MEDICAID ==
[~2019-02-07] VITALS: Ht 167.6 cm; Wt 76.7 kg
[2019-02-07 13:12] VITALS: BP 150/77
== END 2019-02-07 14:18 | disposition home or self-care (01) ==
LOC: ER 12:40
DX: S83.92XA Sprain of unspecified site of left knee, initial encounter (principal); M17.12 Unilateral primary osteoarthritis, left knee; I25.10 Atherosclerotic heart disease of native coronary artery without angina pectoris; K21.9 Gastro-esophageal reflux disease without esophagitis; E78.5 Hyperlipidemia, unspecified; I10 Essential (primary) hypertension; I25.2 Old myocardial infarction; Z86.73 Personal history of transient ischemic attack (TIA), and cerebral infarction without residual deficits; Z98.61 Coronary angioplasty status; F17.210 Nicotine dependence, cigarettes, uncomplicated; Z79.899 Other long term (current) drug therapy; W01.0XXA Fall on same level from slipping, tripping and stumbling without subsequent striking against object, initial encounter; Y93.01 Activity, walking, marching and hiking; Y92.89 Other specified places as the place of occurrence of the external cause; Y99.8 Other external cause status
CPT/HCPCS: 73562

== ENCOUNTER 2019-02-15 13:42 | Emergency (ER) | payer OTHER, MEDICAID ==
[~2019-02-15] VITALS: Ht 167.6 cm; Wt 74.8 kg
[2019-02-15 13:59] VITALS: BP 177/117
== END 2019-02-15 16:25 | disposition home or self-care (01) ==
LOC: ER 13:45
DX: M25.562 Pain in left knee (principal); I25.10 Atherosclerotic heart disease of native coronary artery without angina pectoris; K21.9 Gastro-esophageal reflux disease without esophagitis; E78.5 Hyperlipidemia, unspecified; I10 Essential (primary) hypertension; I25.2 Old myocardial infarction; F17.210 Nicotine dependence, cigarettes, uncomplicated; Z96.651 Presence of right artificial knee joint; Z79.01 Long term (current) use of anticoagulants; Z79.899 Other long term (current) drug therapy; Z86.73 Personal history of transient ischemic attack (TIA), and cerebral infarction without residual deficits; Z98.61 Coronary angioplasty status
CPT/HCPCS: 71046; 73562

== ENCOUNTER 2019-03-25 12:34 | Emergency (ER) | payer MEDICARE, MEDICAID ==
[~2019-03-25] VITALS: Ht 167.6 cm; Wt 74.8 kg
[2019-03-25 16:13] VITALS: BP 135/82
[2019-03-25] MEDS ORDERED: KETOROLAC TROMETH 60MG/2ML VIAL IM ONE (16:45)
== END 2019-03-25 17:20 | disposition home or self-care (01) ==
LOC: ER 12:34
DX: G89.29 Other chronic pain (principal); M25.562 Pain in left knee; K21.9 Gastro-esophageal reflux disease without esophagitis; E78.5 Hyperlipidemia, unspecified; I10 Essential (primary) hypertension; F17.210 Nicotine dependence, cigarettes, uncomplicated; I25.2 Old myocardial infarction; Z98.61 Coronary angioplasty status; Z86.73 Personal history of transient ischemic attack (TIA), and cerebral infarction without residual deficits; Z79.899 Other long term (current) drug therapy
CPT/HCPCS: 73562; 96372; 99283; J1885

== ENCOUNTER 2019-07-25 07:37 | Emergency (ER) | payer OTHER, MEDICAID ==
[~2019-07-25] VITALS: Ht 167.6 cm; Wt 74.8 kg
[2019-07-25] MEDS ORDERED: SODIUM CHLORIDE 0.9% 1,000 ML IV ONE (08:04)
[2019-07-25] MEDS ORDERED: DONNATAL 5ml ORAL Elix (BELLADONNA ALK-PHENOBARB) PO ONE (08:15)
[2019-07-25] MEDS ORDERED: METOCLOPRAMIDE HCL 5MG/ml INJ 2ml VIAL IV ONE (08:15)
[2019-07-25] MEDS ORDERED: FAMOTIDINE 20 MG TAB PO ONE (08:15)
[2019-07-25] MEDS ORDERED: ALUM & MAG HYDROX-SIMETH LIQ(MAALOX) 30 ML PO ONE (08:15)
[2019-07-25 08:20] LABS: Basophils # (auto) 0 uL; Basophils % (auto) 0.3 % (0.0-2.0); Eosinophils # (auto) 0 uL; Hematocrit 43.9 % (41.0-53.0); Hemoglobin 14.8 g/dL (13.5-17.5); Lymphocytes # (auto) 0.6 uL; Lymphocytes % (auto) 7.6 % (10.0-50.0); Mean Corpuscular Hgb Conc. 33.7 g/dL (32.0-36.0); Mean Corpuscular Volume 94.7 fL (80.0-100.0); Monocytes # (auto) 0.3 uL; Monocytes % (auto) 3.7 % (0.0-12.0); Neutrophils # (auto) 7.5 uL; Neutrophils % (auto) 88.4 % (37.0-80.0); Platelet Count (auto) 230 10^3/uL (140-450); Red Blood Cells 4.63 10^6/uL (4.5-5.90); Red Cell Distribution Width 14.4 % (11.8-14.3); White Blood Cell 8.5 10^3/uL (4.4-10.8)
[2019-07-25 08:44] LABS: Chloride 107 mmol/L (98-107); Potassium 4.7 mmol/L (3.5-5.1); Sodium 136 mmol/L (136-145)
[2019-07-25 08:49] LABS: Magnesium 2.4 mg/dL (1.6-2.6)
[2019-07-25 08:55] LABS: Alanine Aminotransferase 21 U/L (16-61); Albumin 3.6 g/dL (3.4-5.0); Alkaline Phosphatase 193 U/L (45-117); Anion Gap 7 (5-15); Aspartate Aminotransferase 14 U/L (15-37); BUN/Creatinine Ratio 19.7; Bilirubin, Total 0.4 mg/dL (0.2-1.0); Blood Urea Nitrogen 31 mg/dL (7-18); Calcium 8.9 mg/dL (8.5-10.1); Carbon Dioxide 22 mmol/L (21-32); GFR African American 57 mL/min; GFR Non-African American 48 mL/min; Glucose 166 mg/dL (74-106); Total Protein 7.5 g/dL (6.4-8.2)
[2019-07-25] MEDS ORDERED: ALBUTEROL SULF 2.5 MG/0.5ML(0.5%) NEB SOLN NEB ONE ×2 (09:00→13:00)
[2019-07-25] MEDS ORDERED: IPRATROPIUM BROM 0.5 MG/2.5ML INH SOL NEB ONE ×2 (09:00→13:00)
[2019-07-25 12:17] LABS: Urine Bacteria FEW /hpf (None Seen); Urine Blood Negative /uL (Negative); Urine Mucus FEW (None Seen); Urine Specific Gravity 1.032 (1.001-1.035); Urine WBC 2 /hpf (0 - 3)
[2019-07-25 13:36] VITALS: BP 113/62
== END 2019-07-25 13:43 | disposition home or self-care (01) ==
LOC: ER 07:37
DX: R07.89 Other chest pain (principal); R10.13 Epigastric pain; J44.1 Chronic obstructive pulmonary disease with (acute) exacerbation; E11.21 Type 2 diabetes mellitus with diabetic nephropathy
CPT/HCPCS: 36415; 71046; 80053; 81001; 83690; 83735; 84484; 85025; 93005; 94640; 96374; 99284; J2765; J7030; J7611; J7644

== ENCOUNTER 2019-11-13 08:41 | Emergency (ER) | payer OTHER, MEDICAID ==
[~2019-11-13] VITALS: Ht 167.6 cm; Wt 74.8 kg
[2019-11-13] MEDS ORDERED: ALBUTEROL SULF 2.5 MG/0.5ML(0.5%) NEB SOLN NEB ONE (09:15)
[2019-11-13] MEDS ORDERED: IPRATROPIUM BROM 0.5 MG/2.5ML INH SOL NEB ONE (09:15)
[2019-11-13] MEDS ORDERED: methylPREDNISolone SOD SUCC 125 MG/2 ML VL IV ONE (09:15)
[2019-11-13 09:42] LABS: Basophils # (auto) 0 uL; Basophils % (auto) 0.8 % (0.0-2.0); Eosinophils # (auto) 0.1 uL; Eosinophils % (auto) 1.6 % (0.0-7.0); Hematocrit 42.4 % (41.0-53.0); Hemoglobin 14.4 g/dL (13.5-17.5); Lymphocytes # (auto) 0.7 uL; Mean Corpuscular Hemoglobin 30.9 pg (28.0-32.0); Monocytes # (auto) 0.5 uL; Neutrophils # (auto) 4.7 uL; Neutrophils % (auto) 77.6 % (37.0-80.0); Platelet Count (auto) 229 10^3/uL (140-450); Red Blood Cells 4.66 10^6/uL (4.5-5.90); Red Cell Distribution Width 13.6 % (11.8-14.3); White Blood Cell 6.1 10^3/uL (4.4-10.8)
[2019-11-13 10:03] LABS: Albumin 3.5 g/dL (3.4-5.0); Anion Gap 3 (5-15); Blood Urea Nitrogen 11 mg/dL (7-18); Calcium 8.8 mg/dL (8.5-10.1); Carbon Dioxide 28 mmol/L (21-32); Chloride 108 mmol/L (98-107); Glucose 82 mg/dL (74-106); Potassium 4.3 mmol/L (3.5-5.1); Sodium 139 mmol/L (136-145)
[2019-11-13 10:09] LABS: Alanine Aminotransferase 21 U/L (16-61); Alkaline Phosphatase 190 U/L (45-117); Aspartate Aminotransferase 17 U/L (15-37); BUN/Creatinine Ratio 13.3; Bilirubin, Total 0.3 mg/dL (0.2-1.0); GFR African American 120 mL/min; GFR Non-African American 99 mL/min; Total Protein 7.4 g/dL (6.4-8.2)
[2019-11-13 11:06] VITALS: BP 122/88
== END 2019-11-13 11:12 | disposition home or self-care (01) ==
LOC: ER 08:41
DX: J45.901 Unspecified asthma with (acute) exacerbation (principal); R07.89 Other chest pain; G40.909 Epilepsy, unspecified, not intractable, without status epilepticus; I11.0 Hypertensive heart disease with heart failure; I50.9 Heart failure, unspecified; K21.9 Gastro-esophageal reflux disease without esophagitis; E78.5 Hyperlipidemia, unspecified; I25.2 Old myocardial infarction; F17.210 Nicotine dependence, cigarettes, uncomplicated; Z86.73 Personal history of transient ischemic attack (TIA), and cerebral infarction without residual deficits
CPT/HCPCS: 36415; 71045; 80053; 84484; 85025; 93005; 94640; 96374; 99285; J2930; J7611; J7644

== ENCOUNTER 2019-11-20 10:38 | Emergency (ER) | payer OTHER, MEDICAID ==
[~2019-11-20] VITALS: Ht 167.6 cm; Wt 74.8 kg
[2019-11-20] MEDS: ASPirin 81 mg TAB PO ONE ×2 (11:09→11:10)
[2019-11-20 11:17] LABS: Basophils # (auto) 0.1 uL; Basophils % (auto) 0.6 % (0.0-2.0); Eosinophils # (auto) 0 uL; Eosinophils % (auto) 0.4 % (0.0-7.0); Hematocrit 43.7 % (41.0-53.0); Hemoglobin 14.5 g/dL (13.5-17.5); Lymphocytes % (auto) 10.3 % (10.0-50.0); Mean Corpuscular Hemoglobin 30.4 pg (28.0-32.0); Mean Corpuscular Hgb Conc. 33.2 g/dL (32.0-36.0); Mean Corpuscular Volume 91.5 fL (80.0-100.0); Monocytes # (auto) 0.8 uL; Monocytes % (auto) 8.1 % (0.0-12.0); Neutrophils # (auto) 7.5 uL; Neutrophils % (auto) 80.6 % (37.0-80.0); Platelet Count (auto) 234 10^3/uL (140-450); Red Blood Cells 4.78 10^6/uL (4.5-5.90); Red Cell Distribution Width 13.8 % (11.8-14.3); White Blood Cell 9.3 10^3/uL (4.4-10.8)
[2019-11-20 11:39] LABS: Albumin 3.7 g/dL (3.4-5.0); Anion Gap 6 (5-15); Blood Urea Nitrogen 18 mg/dL (7-18); Calcium 9.2 mg/dL (8.5-10.1); Carbon Dioxide 25 mmol/L (21-32); Chloride 108 mmol/L (98-107); Glucose 99 mg/dL (74-106); Potassium 3.9 mmol/L (3.5-5.1); Sodium 139 mmol/L (136-145)
[2019-11-20 11:44] LABS: Alanine Aminotransferase 21 U/L (16-61); Alkaline Phosphatase 194 U/L (45-117); Aspartate Aminotransferase 20 U/L (15-37); Bilirubin, Total 0.3 mg/dL (0.2-1.0); GFR African American 90 mL/min; GFR Non-African American 75 mL/min; Total Protein 7.7 g/dL (6.4-8.2)
[2019-11-20 12:00] VITALS: BP 112/64
[2019-11-20] MEDS ORDERED: carBAMazepine 200 MG TAB PO ONE (13:00)
== END 2019-11-20 13:06 | disposition home or self-care (01) ==
LOC: ER 10:38
DX: R07.89 Other chest pain (principal); G40.909 Epilepsy, unspecified, not intractable, without status epilepticus; F17.210 Nicotine dependence, cigarettes, uncomplicated; I11.0 Hypertensive heart disease with heart failure; I50.9 Heart failure, unspecified; K21.9 Gastro-esophageal reflux disease without esophagitis; E78.5 Hyperlipidemia, unspecified; I25.2 Old myocardial infarction; Z90.49 Acquired absence of other specified parts of digestive tract; Z86.73 Personal history of transient ischemic attack (TIA), and cerebral infarction without residual deficits; Z98.61 Coronary angioplasty status
CPT/HCPCS: 36415; 71045; 80053; 80156; 84484; 85025; 93005

== ENCOUNTER 2020-10-13 16:40 | Emergency (ER) | payer OTHER, MEDICAID ==
[~2020-10-13] VITALS: Ht 167.6 cm; Wt 74.8 kg
[~2020-10-13 16:40] MED LIST changes: -ACET-947 PO; +[UNRECOGNIZED DRUG - CODE] PO
[2020-10-13 16:50] VITALS: BP 187/97
== END 2020-10-13 17:54 | disposition home or self-care (01) ==
LOC: ER 16:41
DX: J20.9 Acute bronchitis, unspecified (principal); F17.210 Nicotine dependence, cigarettes, uncomplicated; I11.0 Hypertensive heart disease with heart failure; I50.9 Heart failure, unspecified; R07.9 Chest pain, unspecified; K21.9 Gastro-esophageal reflux disease without esophagitis; E78.5 Hyperlipidemia, unspecified; J45.909 Unspecified asthma, uncomplicated; I25.2 Old myocardial infarction; Z86.73 Personal history of transient ischemic attack (TIA), and cerebral infarction without residual deficits; Z20.822 Contact with and (suspected) exposure to COVID-19; Z90.49 Acquired absence of other specified parts of digestive tract
CPT/HCPCS: 36415; 71045; 87426

== ENCOUNTER 2022-10-10 13:55 | Inpatient (IN) | payer OTHER ==
[~2022-10-10] VITALS: Ht 175.3 cm; Wt 82.0 kg
[~2022-10-10 13:55] MED LIST changes: -CLOP75TA41 PO; +CLOP75TA70 PO
[2022-10-10 15:34] LABS: Basophils # (auto) 0.1 10 ^3/uL (0-0.2); Basophils % (auto) 0.6 % (0.0-2.0); Eosinophils # (auto) 0.1 10 ^3/uL (0-0.8); Hematocrit 41.8 % (41.0-53.0); Hemoglobin 14.4 g/dL (13.5-17.5); Lymphocytes # (auto) 0.7 10 ^3/uL (0.4-5.4); Lymphocytes % (auto) 7.2 % (10.0-50.0); Mean Corpuscular Hemoglobin 31.4 pg (28.0-32.0); Mean Corpuscular Hgb Conc. 34.6 g/dL (32.0-36.0); Mean Corpuscular Volume 90.8 fL (80.0-100.0); Monocytes # (auto) 0.6 10 ^3/uL (0-1.3); Monocytes % (auto) 6.8 % (0.0-12.0); Neutrophils # (auto) 7.8 10 ^3/uL (1.6-8.6); Neutrophils % (auto) 84.4 % (37.0-80.0); Nucleated Red Blood Cells % 0.1 %; Red Cell Distribution Width 14.4 % (11.8-14.3); White Blood Cell 9.3 10^3/uL (4.4-10.8)
[2022-10-10 15:49] LABS: Albumin 3.5 g/dL (3.4-5.0); Calcium 8.5 mg/dL (8.5-10.1); Potassium 4.6 mmol/L (3.5-5.1)
[2022-10-10 15:52] LABS: BUN/Creatinine Ratio 16.1; Bilirubin, Total 0.3 mg/dL (0.2-1.0); Total Protein 6.7 g/dL (6.4-8.2)
[2022-10-10 16:06] LABS: INR 0.97 (0.9-1.15); Partial Thromboplastin Time 27.6 sec (24.6-33.4)
[2022-10-10] MEDS ORDERED: HYDROcodone-ACET 5/325MG TAB PO ONE (17:00)
[2022-10-10] MEDS ORDERED: HYDROcodone-ACET 5/325MG TAB ONE (17:27)
[2022-10-10] MEDS ORDERED: MORPHINE SULFATE INJ 2 MG/ml SYRG IV PRN (19:45)
[2022-10-10] MEDS ORDERED: ACETAMINOPHEN 325 MG TAB PO PRN (19:45)
[2022-10-10] MEDS ORDERED: DOCUSATE SOD 100 MG CAP PO PRN (19:45)
[2022-10-10] MEDS ORDERED: HYDROcodone-ACET 5/325MG TAB PO PRN (19:45)
[2022-10-10] MEDS ORDERED: SODIUM CHLORIDE 0.9% 1,000 ML IV SCH (19:45)
[2022-10-10] MEDS ORDERED: ONDANSETRON HCL 4 MG/2 ML VIAL IV PRN (19:45)
[2022-10-10] MEDS ORDERED: NITROGLYCERIN 0.4 MG SL TAB SL PRN (19:45)
[2022-10-11] MEDS: carBAMazepine 200 MG TAB PO SCH ×3 (00:24→22:22)
[2022-10-11] MEDS: METOPROLOL TARTRATE 25 MG TAB PO SCH ×3 (00:24→22:22)
[2022-10-11] MEDS: MORPHINE SULFATE INJ 2 MG/ml SYRG IV PRN ×5 (00:32→20:28)
[2022-10-11 03:30] VITALS: BP 151/82
[2022-10-11 03:45] VITALS: BP 151/82
[2022-10-11] MEDS ORDERED: INFLUENZA QUAD 2022-2023 0.5 ML SYRG IM ONE (05:00)
[2022-10-11] MEDS ORDERED: PNEUMOCOCCAL VACC POLYS 25 MCG/0.5 ML VIAL IM ONE (05:00)
[2022-10-11 07:31] LABS: Basophils # (auto) 0 10 ^3/uL (0-0.2); Basophils % (auto) 0.4 % (0.0-2.0); Eosinophils # (auto) 0.1 10 ^3/uL (0-0.8); Eosinophils % (auto) 0.8 % (0.0-7.0); Hematocrit 39.3 % (41.0-53.0); Hemoglobin 13.7 g/dL (13.5-17.5); Lymphocytes # (auto) 0.8 10 ^3/uL (0.4-5.4); Lymphocytes % (auto) 9.9 % (10.0-50.0); Mean Corpuscular Hemoglobin 31.5 pg (28.0-32.0); Mean Corpuscular Hgb Conc. 34.9 g/dL (32.0-36.0); Mean Corpuscular Volume 90.4 fL (80.0-100.0); Monocytes # (auto) 0.8 10 ^3/uL (0-1.3); Monocytes % (auto) 10.2 % (0.0-12.0); Neutrophils # (auto) 6.5 10 ^3/uL (1.6-8.6); Neutrophils % (auto) 78.7 % (37.0-80.0); Potassium 4.3 mmol/L (3.5-5.1); Red Blood Cells 4.35 10^6/uL (4.5-5.90); Red Cell Distribution Width 14.4 % (11.8-14.3); White Blood Cell 8.3 10^3/uL (4.4-10.8)
[2022-10-11 07:39] LABS: Albumin 3.2 g/dL (3.4-5.0); BUN/Creatinine Ratio 17.6; Bilirubin, Total 0.6 mg/dL (0.2-1.0); Total Protein 6.4 g/dL (6.4-8.2)
[2022-10-11 09:29] VITALS: BP 176/90
[2022-10-11] MEDS: PANTOPRAZOLE 40 MG/10 ML VIAL INJ IV SCH (09:46)
[2022-10-11] MEDS: FOLIC ACID 1 MG TAB PO SCH (09:47)
[2022-10-11] MEDS ORDERED: FUROSEMIDE 40 MG TAB PO SCH (10:00)
[2022-10-11 12:33] VITALS: BP 173/90
[2022-10-11 16:34] VITALS: BP 171/99
[2022-10-11] MEDS ORDERED: hydrALAZINE HCL 25 MG TAB PO ONE (16:45)
[2022-10-11] MEDS: ERGOCALCIFEROL 50,000 UNIT(1.25MG) CAP PO SCH (17:19)
[2022-10-11] MEDS: hydrALAZINE HCL 25 MG TAB PO SCH (22:21)
[2022-10-11] MEDS: ATORVASTATIN 20 MG TAB PO SCH (22:21)
[2022-10-11 22:27] VITALS: BP 138/77
[2022-10-12] VITALS (7 sets, daily range): BP systolic 100–135; BP diastolic 62–77
[2022-10-12] MEDS: MORPHINE SULFATE INJ 2 MG/ml SYRG IV PRN ×5 (00:24→22:00)
[2022-10-12] MEDS: hydrALAZINE HCL 25 MG TAB PO SCH ×3 (06:00→22:49)
[2022-10-12] MEDS ORDERED: BUPIVACAINE HCL 0.25% P/F 10 ML VIAL ONE (06:49)
[2022-10-12] MEDS ORDERED: ceFAZolin 1GM/50ML 100 ML IV ONE (07:55)
[2022-10-12] MEDS: ENOXAPARIN SOD 40 MG/0.4 ML SYRINGE SC SCH ×2 (08:11→09:21)
[2022-10-12] MEDS: FOLIC ACID 1 MG TAB PO SCH (09:13)
[2022-10-12] MEDS: carBAMazepine 200 MG TAB PO SCH ×2 (09:13→22:48)
[2022-10-12] MEDS: PANTOPRAZOLE 40 MG/10 ML VIAL INJ IV SCH (09:21)
[2022-10-12] MEDS: METOPROLOL TARTRATE 25 MG TAB PO SCH ×2 (10:00→22:53)
[2022-10-12] MEDS ORDERED: IPRATROPIUM BROM 0.5 MG/2.5ML INH SOL NEB PRN (11:00)
[2022-10-12] MEDS ORDERED: ALBUTEROL SULF 2.5 MG/0.5ML(0.5%) NEB SOLN NEB PRN (11:00)
[2022-10-12] MEDS ORDERED: FUROSEMIDE 40 MG/4 ML VIAL IV ONE (11:00)
[2022-10-12 14:57] LABS: Urine Bacteria FEW /hpf (None Seen); Urine Blood Negative /uL (Negative); Urine Mucus FEW (None Seen); Urine Specific Gravity 1.017 (1.001-1.035); Urine WBC 8 /hpf (0 - 3)
[2022-10-12] MEDS: FUROSEMIDE 20 MG/2 ML VIAL IV SCH (17:36)
[2022-10-12] MEDS: ATORVASTATIN 20 MG TAB PO SCH (22:48)
[2022-10-13 05:00] VITALS: BP 128/61
[2022-10-13 06:21] LABS: Potassium 4.5 mmol/L (3.5-5.1)
[2022-10-13 06:26] LABS: BUN/Creatinine Ratio 33.3; Calcium 8.4 mg/dL (8.5-10.1); Magnesium 2.1 mg/dL (1.6-2.6); Phosphorus 3.6 mg/dL (2.5-4.90)
[2022-10-13] MEDS ORDERED: LIDOCAINE 2% JELLY 11ml (GLYDO) ONE (06:45)
[2022-10-13] MEDS ORDERED: SUCCINYLCHOLINE CHLORIDE 20 MG/ML 10ML VIAL IV ONE (06:45)
[2022-10-13] MEDS: FUROSEMIDE 20 MG/2 ML VIAL IV SCH ×2 (06:47→18:39)
[2022-10-13] MEDS: hydrALAZINE HCL 25 MG TAB PO SCH ×3 (06:48→21:56)
[2022-10-13] MEDS: MORPHINE SULFATE INJ 2 MG/ml SYRG IV PRN ×3 (06:49→20:14)
[2022-10-13] MEDS ORDERED: EPINEPHrine HCL 1 MG/1 ML AMP ONE (07:09)
[2022-10-13] MEDS ORDERED: LIDOCAINE W/ EPINEPHRINE 2% INJ 20ML VIAL ONE (07:09)
[2022-10-13] MEDS ORDERED: BUPIVACAINE 0.5% P/F INJ 10 ML VIAL ONE ×2 (07:09→08:03)
[2022-10-13] MEDS ORDERED: DexAMETHasone SOD PHOS 4 MG/1ML SDV INJ ONE (07:09)
[2022-10-13] MEDS ORDERED: MIDAZOLAM HCL 2MG/2ML 2ml VIAL (1mg/ml) ONE (07:33)
[2022-10-13] MEDS ORDERED: fentaNYL CITRATE 100 MCG/2 ML VL ONE (07:33)
[2022-10-13] MEDS ORDERED: DexAMETHasone SOD PHOS 10MG/1ML VIAL INJ ONE (07:34)
[2022-10-13] MEDS ORDERED: PROPOFOL 10 MG/ML 20 ML IV ONE ×2 (07:34→14:07)
[2022-10-13] MEDS ORDERED: ceFAZolin 1GM/50ML 100 ML IV ONE (07:50)
[2022-10-13 08:20] VITALS: BP 120/72
[2022-10-13] MEDS ORDERED: LACTATED RINGER'S 1,000 ML IV SCH (09:30)
[2022-10-13] MEDS ORDERED: HYDROcodone-ACET 10/325MG TAB PO PRN (09:30)
[2022-10-13] MEDS ORDERED: MIDAZOLAM HCL 2MG/2ML 2ml VIAL (1mg/ml) IV PRN (10:00)
[2022-10-13] MEDS: FOLIC ACID 1 MG TAB PO SCH (10:00)
[2022-10-13] MEDS ORDERED: ePHEDrine SULFATE 50 MG/ML AMP IV PRN (10:00)
[2022-10-13] MEDS: PANTOPRAZOLE 40 MG/10 ML VIAL INJ IV SCH (10:00)
[2022-10-13] MEDS ORDERED: ONDANSETRON HCL 4 MG/2 ML VIAL IV PRN (10:00)
[2022-10-13] MEDS: carBAMazepine 200 MG TAB PO SCH ×2 (10:00→21:56)
[2022-10-13] MEDS: METOPROLOL TARTRATE 25 MG TAB PO SCH ×2 (10:00→21:55)
[2022-10-13] MEDS ORDERED: LABETALOL HCL 5 MG/ML 4ML SYRINGE IV PRN (10:00)
[2022-10-13] MEDS ORDERED: MORPHINE SULFATE INJ 2 MG/ml SYRG IV ONE (10:18)
[2022-10-13 13:00] VITALS: BP 142/76
[2022-10-13] MEDS: SODIUM CHLOR 0.9% PF (SALINE LOCK) 10ML VIAL/SYR IV SCH ×2 (13:41→21:57)
[2022-10-13] MEDS: HYDROcodone-ACET 10/325MG TAB PO PRN (13:41)
[2022-10-13] MEDS: ceFAZolin 2 GM in D5W 5% 100 ML IV SCH ×2 (13:42→21:57)
[2022-10-13] MEDS ORDERED: PHENYLEPHRINE HCL 10 MG/ML VL IV ONE (14:07)
[2022-10-13] MEDS ORDERED: DexAMETHasone SOD PHOS 10MG/1ML VIAL INJ IV ONE (14:07)
[2022-10-13 17:02] VITALS: BP 113/62
[2022-10-13] MEDS ORDERED: ALBUTEROL MEDNEB 2.5 mg/3ml NEB ONE ×2 (18:45→23:39)
[2022-10-13] MEDS: ATORVASTATIN 20 MG TAB PO SCH (21:55)
[2022-10-13 22:00] VITALS: BP 125/65
[2022-10-14] MEDS: MORPHINE SULFATE INJ 2 MG/ml SYRG IV PRN ×6 (00:18→22:26)
[2022-10-14] MEDS ORDERED: ALBUTEROL MEDNEB 2.5 mg/3ml NEB ONE (04:48)
[2022-10-14 05:00] VITALS: BP 104/66
[2022-10-14] MEDS: SODIUM CHLOR 0.9% PF (SALINE LOCK) 10ML VIAL/SYR IV SCH ×3 (05:43→22:28)
[2022-10-14] MEDS: FUROSEMIDE 20 MG/2 ML VIAL IV SCH ×3 (05:43→18:40)
[2022-10-14] MEDS: hydrALAZINE HCL 25 MG TAB PO SCH ×3 (06:00→22:27)
[2022-10-14 06:13] LABS: Basophils # (auto) 0 10 ^3/uL (0-0.2); Basophils % (auto) 0.1 % (0.0-2.0); Eosinophils # (auto) 0 10 ^3/uL (0-0.8); Eosinophils % (auto) 0.4 % (0.0-7.0); Hematocrit 39.1 % (41.0-53.0); Hemoglobin 13.8 g/dL (13.5-17.5); Lymphocytes # (auto) 0.5 10 ^3/uL (0.4-5.4); Lymphocytes % (auto) 4.1 % (10.0-50.0); Mean Corpuscular Hemoglobin 31.7 pg (28.0-32.0); Mean Corpuscular Hgb Conc. 35.4 g/dL (32.0-36.0); Mean Corpuscular Volume 89.6 fL (80.0-100.0); Monocytes # (auto) 1.1 10 ^3/uL (0-1.3); Monocytes % (auto) 9.9 % (0.0-12.0); Neutrophils # (auto) 9.8 10 ^3/uL (1.6-8.6); Neutrophils % (auto) 85.5 % (37.0-80.0); Red Blood Cells 4.36 10^6/uL (4.5-5.90); White Blood Cell 11.4 10^3/uL (4.4-10.8)
[2022-10-14 06:32] LABS: Calcium 8.5 mg/dL (8.5-10.1); Potassium 4.9 mmol/L (3.5-5.1)
[2022-10-14 06:34] LABS: BUN/Creatinine Ratio 41.3
[2022-10-14 09:00] VITALS: BP 135/80
[2022-10-14] MEDS: PANTOPRAZOLE 40 MG/10 ML VIAL INJ IV SCH (10:04)
[2022-10-14] MEDS: METOPROLOL TARTRATE 25 MG TAB PO SCH ×2 (10:05→22:27)
[2022-10-14] MEDS: carBAMazepine 200 MG TAB PO SCH ×2 (10:05→22:27)
[2022-10-14] MEDS: ENOXAPARIN SOD 40 MG/0.4 ML SYRINGE SC SCH (10:05)
[2022-10-14] MEDS: FOLIC ACID 1 MG TAB PO SCH (10:06)
[2022-10-14] MEDS ORDERED: FUROSEMIDE 20 MG/2 ML VIAL IV ONE (10:45)
[2022-10-14 13:00] VITALS: BP 131/78
[2022-10-14 17:00] VITALS: BP 115/62
[2022-10-14 22:00] VITALS: BP 134/70
[2022-10-14] MEDS: ATORVASTATIN 20 MG TAB PO SCH (22:27)
[2022-10-15] MEDS: MORPHINE SULFATE INJ 2 MG/ml SYRG IV PRN ×5 (04:49→22:29)
[2022-10-15 05:00] VITALS: BP 131/73
[2022-10-15] MEDS: FUROSEMIDE 20 MG/2 ML VIAL IV SCH ×3 (05:24→18:18)
[2022-10-15] MEDS: hydrALAZINE HCL 25 MG TAB PO SCH ×3 (06:06→22:30)
[2022-10-15] MEDS: SODIUM CHLOR 0.9% PF (SALINE LOCK) 10ML VIAL/SYR IV SCH ×3 (06:07→22:00)
[2022-10-15 09:00] VITALS: BP 117/68
[2022-10-15 09:25] LABS: Basophils # (auto) 0 10 ^3/uL (0-0.2); Basophils % (auto) 0.2 % (0.0-2.0); Eosinophils # (auto) 0.1 10 ^3/uL (0-0.8); Eosinophils % (auto) 1.2 % (0.0-7.0); Hematocrit 40.7 % (41.0-53.0); Hemoglobin 13.7 g/dL (13.5-17.5); Lymphocytes # (auto) 0.6 10 ^3/uL (0.4-5.4); Lymphocytes % (auto) 7.8 % (10.0-50.0); Mean Corpuscular Hemoglobin 30.9 pg (28.0-32.0); Mean Corpuscular Hgb Conc. 33.6 g/dL (32.0-36.0); Mean Corpuscular Volume 91.9 fL (80.0-100.0); Monocytes % (auto) 12.6 % (0.0-12.0); Neutrophils # (auto) 5.9 10 ^3/uL (1.6-8.6); Neutrophils % (auto) 78.2 % (37.0-80.0); Red Blood Cells 4.43 10^6/uL (4.5-5.90); Red Cell Distribution Width 14.1 % (11.8-14.3); White Blood Cell 7.6 10^3/uL (4.4-10.8)
[2022-10-15] MEDS: PANTOPRAZOLE 40 MG/10 ML VIAL INJ IV SCH (09:27)
[2022-10-15] MEDS: carBAMazepine 200 MG TAB PO SCH ×2 (09:27→22:30)
[2022-10-15] MEDS: ENOXAPARIN SOD 40 MG/0.4 ML SYRINGE SC SCH (09:27)
[2022-10-15] MEDS: FOLIC ACID 1 MG TAB PO SCH (09:27)
[2022-10-15] MEDS: METOPROLOL TARTRATE 25 MG TAB PO SCH ×2 (09:28→22:30)
[2022-10-15 09:38] LABS: BUN/Creatinine Ratio 48.9; Calcium 8.6 mg/dL (8.5-10.1); Magnesium 2.6 mg/dL (1.6-2.6); Phosphorus 3.3 mg/dL (2.5-4.90); Potassium 4.6 mmol/L (3.5-5.1)
[2022-10-15 12:28] VITALS: BP 117/68
[2022-10-15 13:00] VITALS: BP 101/65
[2022-10-15] MEDS ORDERED: IOHEXOL 350 MG/ML 100ML IJ ONE (16:14)
[2022-10-15 17:00] VITALS: BP 127/62
[2022-10-15 22:00] VITALS: BP 123/62
[2022-10-15] MEDS: ENOXAPARIN SOD 80 MG/0.8ML SYRINGE SC SCH (22:29)
[2022-10-15] MEDS: ATORVASTATIN 20 MG TAB PO SCH (22:30)
[2022-10-16 05:00] VITALS: BP 117/69
[2022-10-16] MEDS: FUROSEMIDE 20 MG/2 ML VIAL IV SCH ×2 (05:55→17:20)
[2022-10-16] MEDS: MORPHINE SULFATE INJ 2 MG/ml SYRG IV PRN ×5 (05:55→23:32)
[2022-10-16] MEDS: SODIUM CHLOR 0.9% PF (SALINE LOCK) 10ML VIAL/SYR IV SCH ×3 (05:56→22:13)
[2022-10-16] MEDS: hydrALAZINE HCL 25 MG TAB PO SCH ×3 (05:56→22:13)
[2022-10-16 06:13] LABS: Basophils # (auto) 0 10 ^3/uL (0-0.2); Basophils % (auto) 0.4 % (0.0-2.0); Eosinophils # (auto) 0.1 10 ^3/uL (0-0.8); Eosinophils % (auto) 1.3 % (0.0-7.0); Hematocrit 37.4 % (41.0-53.0); Hemoglobin 13.1 g/dL (13.5-17.5); Lymphocytes # (auto) 0.5 10 ^3/uL (0.4-5.4); Lymphocytes % (auto) 6.8 % (10.0-50.0); Mean Corpuscular Hemoglobin 31.5 pg (28.0-32.0); Mean Corpuscular Hgb Conc. 35.1 g/dL (32.0-36.0); Mean Corpuscular Volume 89.9 fL (80.0-100.0); Monocytes # (auto) 1.1 10 ^3/uL (0-1.3); Monocytes % (auto) 13.4 % (0.0-12.0); Neutrophils # (auto) 6.3 10 ^3/uL (1.6-8.6); Neutrophils % (auto) 78.1 % (37.0-80.0); Nucleated Red Blood Cells % 0.1 %; Red Blood Cells 4.16 10^6/uL (4.5-5.90); White Blood Cell 8.1 10^3/uL (4.4-10.8)
[2022-10-16 06:46] LABS: Potassium 4.3 mmol/L (3.5-5.1)
[2022-10-16 06:54] LABS: BUN/Creatinine Ratio 58.8; Calcium 8.6 mg/dL (8.5-10.1)
[2022-10-16 09:00] VITALS: BP 111/64
[2022-10-16] MEDS: PANTOPRAZOLE 40 MG/10 ML VIAL INJ IV SCH (10:01)
[2022-10-16] MEDS: levoFLOXacin 500MG 100 ML IV SCH (10:01)
[2022-10-16] MEDS: ENOXAPARIN SOD 80 MG/0.8ML SYRINGE SC SCH ×2 (10:03→22:12)
[2022-10-16] MEDS: FOLIC ACID 1 MG TAB PO SCH (10:03)
[2022-10-16] MEDS: carBAMazepine 200 MG TAB PO SCH ×2 (10:03→22:13)
[2022-10-16] MEDS: METOPROLOL TARTRATE 25 MG TAB PO SCH ×2 (10:12→22:13)
[2022-10-16 13:00] VITALS: BP 114/63
[2022-10-16 17:00] VITALS: BP 118/68
[2022-10-16 22:00] VITALS: BP 117/66
[2022-10-16] MEDS: ATORVASTATIN 20 MG TAB PO SCH (22:13)
[2022-10-17] MEDS: MORPHINE SULFATE INJ 2 MG/ml SYRG IV PRN ×4 (04:56→20:05)
[2022-10-17 05:00] VITALS: BP 109/65
[2022-10-17] MEDS: FUROSEMIDE 20 MG/2 ML VIAL IV SCH ×2 (06:00→18:01)
[2022-10-17] MEDS: SODIUM CHLOR 0.9% PF (SALINE LOCK) 10ML VIAL/SYR IV SCH ×3 (06:00→21:26)
[2022-10-17] MEDS: HYDROcodone-ACET 10/325MG TAB PO PRN ×2 (06:14→21:25)
[2022-10-17] MEDS: hydrALAZINE HCL 25 MG TAB PO SCH ×3 (06:53→21:27)
[2022-10-17 08:00] VITALS: BP 111/60
[2022-10-17 12:00] VITALS: BP 130/78
[2022-10-17 12:54] LABS: Basophils # (auto) 0 10 ^3/uL (0-0.2); Basophils % (auto) 0.6 % (0.0-2.0); Eosinophils # (auto) 0.1 10 ^3/uL (0-0.8); Eosinophils % (auto) 1.3 % (0.0-7.0); Hemoglobin 12.9 g/dL (13.5-17.5); Lymphocytes # (auto) 0.6 10 ^3/uL (0.4-5.4); Lymphocytes % (auto) 7.7 % (10.0-50.0); Mean Corpuscular Hemoglobin 30.7 pg (28.0-32.0); Mean Corpuscular Hgb Conc. 33.9 g/dL (32.0-36.0); Mean Corpuscular Volume 90.4 fL (80.0-100.0); Monocytes # (auto) 0.9 10 ^3/uL (0-1.3); Monocytes % (auto) 12.3 % (0.0-12.0); Neutrophils % (auto) 78.1 % (37.0-80.0); Nucleated Red Blood Cells % 0.2 %; Red Cell Distribution Width 13.7 % (11.8-14.3); White Blood Cell 7.7 10^3/uL (4.4-10.8)
[2022-10-17] MEDS: levoFLOXacin 500MG 100 ML IV SCH (14:48)
[2022-10-17] MEDS: FOLIC ACID 1 MG TAB PO SCH (14:48)
[2022-10-17] MEDS: PANTOPRAZOLE 40 MG/10 ML VIAL INJ IV SCH (14:48)
[2022-10-17] MEDS: carBAMazepine 200 MG TAB PO SCH ×2 (14:49→21:28)
[2022-10-17] MEDS: ENOXAPARIN SOD 80 MG/0.8ML SYRINGE SC SCH ×2 (14:49→21:27)
[2022-10-17] MEDS: METOPROLOL TARTRATE 25 MG TAB PO SCH ×2 (15:04→21:27)
[2022-10-17 16:00] VITALS: BP 147/75
[2022-10-17] MEDS: ATORVASTATIN 20 MG TAB PO SCH (21:27)
[2022-10-17 22:00] VITALS: BP 146/80
[2022-10-18] MEDS: MORPHINE SULFATE INJ 2 MG/ml SYRG IV PRN ×5 (00:13→21:42)
[2022-10-18 05:00] VITALS: BP 127/78
[2022-10-18] MEDS: SODIUM CHLOR 0.9% PF (SALINE LOCK) 10ML VIAL/SYR IV SCH ×3 (05:20→21:39)
[2022-10-18] MEDS: hydrALAZINE HCL 25 MG TAB PO SCH ×3 (05:20→21:40)
[2022-10-18] MEDS: FUROSEMIDE 20 MG/2 ML VIAL IV SCH ×2 (05:20→17:31)
[2022-10-18 07:30] LABS: Basophils # (auto) 0 10 ^3/uL (0-0.2); Basophils % (auto) 0.5 % (0.0-2.0); Eosinophils # (auto) 0.2 10 ^3/uL (0-0.8); Eosinophils % (auto) 2.5 % (0.0-7.0); Hematocrit 37.7 % (41.0-53.0); Hemoglobin 12.8 g/dL (13.5-17.5); Lymphocytes # (auto) 0.7 10 ^3/uL (0.4-5.4); Lymphocytes % (auto) 8.2 % (10.0-50.0); Mean Corpuscular Hemoglobin 30.7 pg (28.0-32.0); Mean Corpuscular Hgb Conc. 33.9 g/dL (32.0-36.0); Mean Corpuscular Volume 90.4 fL (80.0-100.0); Monocytes % (auto) 11.7 % (0.0-12.0); Neutrophils # (auto) 6.4 10 ^3/uL (1.6-8.6); Neutrophils % (auto) 77.1 % (37.0-80.0); Nucleated Red Blood Cells % 0.1 %; Red Blood Cells 4.18 10^6/uL (4.5-5.90); Red Cell Distribution Width 13.8 % (11.8-14.3); White Blood Cell 8.3 10^3/uL (4.4-10.8)
[2022-10-18 08:59] VITALS: BP 132/75
[2022-10-18] MEDS: PANTOPRAZOLE 40 MG/10 ML VIAL INJ IV SCH (09:29)
[2022-10-18] MEDS: ENOXAPARIN SOD 80 MG/0.8ML SYRINGE SC SCH ×2 (09:29→21:40)
[2022-10-18] MEDS: levoFLOXacin 500MG 100 ML IV SCH (09:30)
[2022-10-18] MEDS: carBAMazepine 200 MG TAB PO SCH ×2 (09:30→21:40)
[2022-10-18] MEDS: FOLIC ACID 1 MG TAB PO SCH (09:30)
[2022-10-18] MEDS: METOPROLOL TARTRATE 25 MG TAB PO SCH ×2 (09:30→21:41)
[2022-10-18] MEDS: HYDROcodone-ACET 10/325MG TAB PO PRN ×2 (12:35→19:44)
[2022-10-18] MEDS: Ensure HIGH Protein Chocolate 8oz Bottle PO SCH ×2 (13:00→18:27)
[2022-10-18 13:13] VITALS: BP 127/76
[2022-10-18 17:16] VITALS: BP_SYST 134; BP_SYST 97; BP_DIAS 77; BP_DIAS 81
[2022-10-18] MEDS: ERGOCALCIFEROL 50,000 UNIT(1.25MG) CAP PO SCH (18:32)
[2022-10-18] MEDS: ATORVASTATIN 20 MG TAB PO SCH (21:40)
[2022-10-18 22:00] VITALS: BP 126/75
[2022-10-19 05:00] VITALS: BP 120/68
[2022-10-19] MEDS: FUROSEMIDE 20 MG/2 ML VIAL IV SCH ×2 (06:00→18:00)
[2022-10-19] MEDS: SODIUM CHLOR 0.9% PF (SALINE LOCK) 10ML VIAL/SYR IV SCH ×3 (06:16→21:12)
[2022-10-19] MEDS: hydrALAZINE HCL 25 MG TAB PO SCH ×3 (06:16→21:11)
[2022-10-19] MEDS: Ensure HIGH Protein Chocolate 8oz Bottle PO SCH ×3 (08:00→18:00)
[2022-10-19 09:00] VITALS: BP 107/62
[2022-10-19 09:12] LABS: Basophils # (auto) 0.1 10 ^3/uL (0-0.2); Basophils % (auto) 0.7 % (0.0-2.0); Eosinophils # (auto) 0.1 10 ^3/uL (0-0.8); Eosinophils % (auto) 1.2 % (0.0-7.0); Hematocrit 38.7 % (41.0-53.0); Hemoglobin 12.7 g/dL (13.5-17.5); Lymphocytes % (auto) 10.5 % (10.0-50.0); Mean Corpuscular Hemoglobin 29.8 pg (28.0-32.0); Mean Corpuscular Hgb Conc. 32.8 g/dL (32.0-36.0); Mean Corpuscular Volume 90.9 fL (80.0-100.0); Monocytes % (auto) 10.4 % (0.0-12.0); Neutrophils # (auto) 7.2 10 ^3/uL (1.6-8.6); Neutrophils % (auto) 77.2 % (37.0-80.0); Nucleated Red Blood Cells % 0.1 %; Red Blood Cells 4.25 10^6/uL (4.5-5.90); Red Cell Distribution Width 13.9 % (11.8-14.3); White Blood Cell 9.3 10^3/uL (4.4-10.8)
[2022-10-19] MEDS: FOLIC ACID 1 MG TAB PO SCH (09:50)
[2022-10-19] MEDS: METOPROLOL TARTRATE 25 MG TAB PO SCH ×2 (09:50→21:09)
[2022-10-19] MEDS: PANTOPRAZOLE 40 MG/10 ML VIAL INJ IV SCH (09:57)
[2022-10-19] MEDS: MORPHINE SULFATE INJ 2 MG/ml SYRG IV PRN ×4 (09:57→22:10)
[2022-10-19] MEDS: levoFLOXacin 500MG 100 ML IV SCH (09:58)
[2022-10-19] MEDS: ENOXAPARIN SOD 80 MG/0.8ML SYRINGE SC SCH ×2 (10:00→21:10)
[2022-10-19] MEDS: carBAMazepine 200 MG TAB PO SCH ×2 (10:00→21:11)
[2022-10-19 13:00] VITALS: BP 124/68
[2022-10-19 17:00] VITALS: BP 112/61
[2022-10-19] MEDS: HYDROcodone-ACET 10/325MG TAB PO PRN (20:13)
[2022-10-19] MEDS: ATORVASTATIN 20 MG TAB PO SCH (21:10)
[2022-10-19 22:00] VITALS: BP 106/69
[2022-10-20 05:00] VITALS: BP 134/71
[2022-10-20] MEDS: hydrALAZINE HCL 25 MG TAB PO SCH (06:30)
[2022-10-20] MEDS: FUROSEMIDE 20 MG/2 ML VIAL IV SCH (06:31)
[2022-10-20] MEDS: MORPHINE SULFATE INJ 2 MG/ml SYRG IV PRN ×2 (06:31→10:31)
[2022-10-20] MEDS: SODIUM CHLOR 0.9% PF (SALINE LOCK) 10ML VIAL/SYR IV SCH (06:31)
[2022-10-20] MEDS: Ensure HIGH Protein Chocolate 8oz Bottle PO SCH ×2 (08:53→12:00)
[2022-10-20] MEDS: levoFLOXacin 500MG 100 ML IV SCH (08:54)
[2022-10-20] MEDS: ENOXAPARIN SOD 80 MG/0.8ML SYRINGE SC SCH (08:54)
[2022-10-20] MEDS: PANTOPRAZOLE 40 MG/10 ML VIAL INJ IV SCH (08:55)
[2022-10-20] MEDS: FOLIC ACID 1 MG TAB PO SCH (08:55)
[2022-10-20] MEDS: carBAMazepine 200 MG TAB PO SCH (08:56)
[2022-10-20] MEDS: METOPROLOL TARTRATE 25 MG TAB PO SCH (08:56)
[2022-10-20 09:00] VITALS: BP 111/67
[2022-10-20 09:28] LABS: Hematocrit 36.8 % (41.0-53.0); Hemoglobin 12.1 g/dL (13.5-17.5); Mean Corpuscular Hemoglobin 29.8 pg (28.0-32.0); Mean Corpuscular Hgb Conc. 32.8 g/dL (32.0-36.0); Mean Corpuscular Volume 90.7 fL (80.0-100.0); Red Blood Cells 4.05 10^6/uL (4.5-5.90); Red Cell Distribution Width 13.8 % (11.8-14.3)
[2022-10-20 09:31] LABS: Basophils % (manual) 0 (0.0-2.0); Blast Cells 0; Metamyelocytes % 0; Myelocytes % 0; Promyelocytes % 0
[2022-10-20 09:52] VITALS: BP 111/67
[2022-10-20 11:01] VITALS: BP 120/73
[2022-10-20 12:04] LABS: Band Neutrophils % (manual) 2; Eosinophils % (manual) 2 (0-7); Lymphocytes % (manual) 9 (10.0-50.0); Monocytes % (manual) 9 (0-12); Reactive Lymphocytes 1
== END 2022-10-20 12:00 | DRG 480 ==
LOC: ER 13:55 → EDBD 13:55 → TELE 19:47 → TELE-EAST 10-11 02:56
PROVIDERS: ADMIT Nurse Practitioner Family; ATTEND Internal Medicine
PROC: 0QS606Z Reposition Right Upper Femur with Intramedullary Internal Fixation Device, Open Approach (ICD-10-PCS; principal; 2022-10-13 08:01)
DX: S72.141A Displaced intertrochanteric fracture of right femur, initial encounter for closed fracture (principal); I26.99 Other pulmonary embolism without acute cor pulmonale; I50.23 Acute on chronic systolic (congestive) heart failure; J96.00 Acute respiratory failure, unspecified whether with hypoxia or hypercapnia; J44.1 Chronic obstructive pulmonary disease with (acute) exacerbation; J45.901 Unspecified asthma with (acute) exacerbation; I82.431 Acute embolism and thrombosis of right popliteal vein; Z20.822 Contact with and (suspected) exposure to COVID-19; E78.5 Hyperlipidemia, unspecified; I11.0 Hypertensive heart disease with heart failure; K21.9 Gastro-esophageal reflux disease without esophagitis; R56.9 Unspecified convulsions; E55.9 Vitamin D deficiency, unspecified; W18.39XA Other fall on same level, initial encounter; I25.10 Atherosclerotic heart disease of native coronary artery without angina pectoris; Z79.02 Long term (current) use of antithrombotics/antiplatelets; Z98.61 Coronary angioplasty status; Z86.73 Personal history of transient ischemic attack (TIA), and cerebral infarction without residual deficits; Z79.51 Long term (current) use of inhaled steroids; Z79.899 Other long term (current) drug therapy; Y93.89 Activity, other specified; Y92.89 Other specified places as the place of occurrence of the external cause; Y99.8 Other external cause status; Z90.49 Acquired absence of other specified parts of digestive tract; Z72.0 Tobacco use
CPT/HCPCS: 36415; 36600; 71045; 71275; 73502; 73560; 76000; 76775; 80048; 80053; 81001; 82306; 82805; 83036; 83735; 83880; 84100; 84443; 84484; 85007; 85025; 85027; 85379; 85610; 85730; 86850; 86900; 86901; 87426; 93005; 93306; 93970; 94640; 96360; 97110; 97116; 97163; 97530; C9113; G0378; J0171; J0330; J0690; J1100; J1956; J2250; J2704; J3490; J7060